=== PATIENT | male | born 1950 | race Caucasian/White ===

== ENCOUNTER → 2020-07-05 09:23 | Outpatient (REF) | payer OTHER, SELFPAY ==
--- NOTE | 2020-07-05 09:30 | CA_ITS ---
Transthoracic Echocardiogram Patient (Last, First, Middle): Michael Farrell E Gender: Male Date of : 1950 Age: 69 Procedure Date: 07/05/2020 Procedure Type: Transthoracic Echocardiogram Location: OP Height: 165.1 cm Weight: 70.31 kg BSA: 1.78 m2 Heart Rate: bpm BP: 180 / 72 mmHg Director Of Sustainability Programs: DSJoselin Referring MD: Greg Tejeda MD Symptoms: Z95.2 H/O MECHANICAL AV REPLACEMENT Study Quality: Technically Difficult ECG Rhythm: Sinus Conclusions: - The left ventricular systolic function is normal. The visually estimated ejection fraction is between 55-60%. - A mechanical prosthetic aortic valve is present. The prosthetic aortic valve appears to be functioning normally. Findings Left Ventricle Normal left ventricular cavity size. The left ventricular systolic function is normal. The visually estimated ejection fraction is between 55-60%. There is no evidence of regional wall motion abnormalities. E/E prime ratio is between 8 and 15 consistent with indeterminate filling pressures. Evidence suggests grade I (mild) diastolic dysfunction. There is mild septal asymmetric hypertrophy. Right Ventricle Normal right ventricular cavity size and systolic function. Atria The left atrium is normal in size. The right atrium is normal in size. Aortic Valve A mechanical prosthetic aortic valve is present. The prosthetic aortic valve appears to be functioning normally. The peak aortic velocity is 2.26 m/s with a calculated peak gradient of 20 mmHg. The mean gradient is 10 mmHg. The aortic valve area is 1.53 cm2. Mild para-valvular regurgitation. Acceleration time 74ms, within normal limits. Mitral Valve The mitral valve appears normal. There is trace mitral valve regurgitation. There is no mitral valve stenosis. Pulmonic Valve The pulmonic valve was not well visualized. There is mild pulmonic valve regurgitation. Tricuspid Valve Normal tricuspid valve structure. There is trace tricuspid valve regurgitation. The pulmonary artery systolic pressure is normal. Great Vessels The aortic annulus, sinuses of valsalva, and asc aorta are normal in size. Venous The inferior vena cava is normal in size and collapses greater than 50% with inspiration. Pericardium/Pleural There is no evidence of pericardial effusion. Prior Study Comparison No significant change compared to prior study dated: 05/20/2019. Measurements 2D Linear Measurements IVSd: 1.53 0.6-0.9/0.6-1.0 cm LVIDd: 5.03 3.9-5.3/4.2-5.9 cm LVIDd Index: 2.83 2.4-3.2/2.2-3.1 cm/m2 LVIDs: 4.02 2.0-3.6 cm LVPWd: 1.05 0.7-1.1 cm LA Diam: 3.40 2.7-3.8/3.0-4.0 cm LAIDs Index: 1.91 1.5-2.3 cm/m2 LV Mass: 325.99 67-162/88-224 g LV Mass Index: 183.14 43-95/49-115 g/m2 LVOT Diam: 2.30 3.0+(-)1.3 cm 2D Systolic Function EF 4C: 75.50 >55% EF 2C: 41.60 >55% EF BiP: 61.80 >55% Mitral Valve MV Pk E: 0.57 MV PK A: 0.63 MV Decel Time: 187.00 E/A: 0.90 E'Lateral: 6.29 E'Medial: 4.93 E/E' Med: 11.50 E/E' Lat: 9.00 PHT: 55.00 MVA PHT: 4.00 Decel [place]: 3.04 Aortic Valve AoV Pk Magdy: 2.26 AoV Mn Magdy: 1.48 AoV VTI: 0.44 AoV Pk Grad: 20.00 Aov Mn Grad: 10.00 FLORESITA Cont.VTI: 1.53 AI Pk Magdy: 6.01 AI Harvey: 4.27 LVOT LVOT Pk Magdy: 0.70 LVOT Mn Magdy: 0.50 LVOT VTI: 0.16 LVOT Pk Grad: 2.00 LVOT Mn Grad: 1.00 LVOT Diam: 2.30 LVOT Area: 4.15 Diastolic Function MV Pk E: 0.57 MV Pk A: 0.63 E/A: 0.90 E'Medial: 4.93 E/E' Med: 11.50 E' Laterial: 6.29 E/E' Lat: 9.00 Tricuspid Valve TR Pk Magdy: 2.01 TR Pk Grad: 16.00 RA Press: 3.00 RVSP: 19.00 Great Vessels Aorta Ao Asc: 3.40 2.1-3.4 cm Updated in Other Vendor System with Status of Final Fer Stone MD electronically signed on 07/05/2020 12:29:03 PM with status of Final
== END ==
LOC: HO.CARD 09:23
PROVIDERS: PCP Family Medicine; Visit Provider Internal Medicine Cardiovascular Disease
DX: Z95.2 Presence of prosthetic heart valve (principal)
CPT/HCPCS: 93306

== ENCOUNTER → 2020-07-12 14:50 | Outpatient (BNVA) | payer OTHER, SELFPAY | PROVIDERS: PCP Family Medicine; Visit Provider Internal Medicine Cardiovascular Disease | DX: Z76.89 Persons encountering health services in other specified circumstances (principal) ==

== ENCOUNTER → 2020-09-28 08:31 | Outpatient (REF) | payer OTHER, SELFPAY ==
--- NOTE | 2020-09-28 08:34 | CA_ITS ---
Transthoracic Echocardiogram Patient (Last, First, Middle): Michael Farrell E Gender: Male Date of : 1950 Age: 69 Procedure Date: 09/28/2020 Procedure Type: Transthoracic Echocardiogram Location: OP Height: 165.1 cm Weight: 68.04 kg BSA: 1.75 m2 Heart Rate: bpm BP: 122 / 80 mmHg Chief Petroleum Engineer: Referring MD: Greg Tejeda MD Symptoms: Z95.2 - Presence of prosthetic heart valve Study Quality: Fair ECG Rhythm: Sinus Conclusions: - The left ventricular systolic function is mildly decreased. The visually estimated ejection fraction is between 45-50%. - There is mildly decreased right ventricular systolic function. - The left atrium is moderately dilated. - A mechanical prosthetic aortic valve is present. The prosthetic aortic valve appears to be functioning normally. Mild para-valvular regurgitation. Findings Left Ventricle Normal left ventricular cavity size. There is moderately increased left ventricular wall thickness. The left ventricular systolic function is mildly decreased. The visually estimated ejection fraction is between 45-50%. E/E prime ratio is between 8 and 15 consistent with indeterminate filling pressures. Evidence suggests grade I (mild) diastolic dysfunction. Right Ventricle Normal right ventricular cavity size. There is mildly decreased right ventricular systolic function. Atria The left atrium is moderately dilated. The right atrium is normal in size. Aortic Valve A mechanical prosthetic aortic valve is present. The prosthetic aortic valve appears to be functioning normally. The peak aortic velocity is 2.38 m/s with a calculated peak gradient of 23 mmHg. The mean gradient is 11 mmHg. The aortic valve area is 1.96 cm2. Mild para-valvular regurgitation. Mitral Valve The mitral valve appears normal. There is mild mitral valve regurgitation. There is no mitral valve stenosis. Pulmonic Valve The pulmonic valve was not well visualized. There is mild pulmonic valve regurgitation. Tricuspid Valve Normal tricuspid valve structure. There is trace tricuspid valve regurgitation. The pulmonary artery systolic pressure is normal. Great Vessels The aortic annulus, sinuses of valsalva, and asc aorta are normal in size. Venous The inferior vena cava was not well visualized. Pericardium/Pleural There is no evidence of pericardial effusion. Prior Study Comparison Changes noted compared to prior study dated: 07/05/2020. LVEF appears lower but could also be from image quality. Measurements 2D Linear Measurements IVSd: 1.52 0.6-0.9/0.6-1.0 cm LVIDd: 4.58 3.9-5.3/4.2-5.9 cm LVIDd Index: 2.62 2.4-3.2/2.2-3.1 cm/m2 LVIDs: 3.36 2.0-3.6 cm LVPWd: 1.50 0.7-1.1 cm Ao Root: 3.40 2.1-3.5 cm LA Diam: 3.60 2.7-3.8/3.0-4.0 cm LAIDs Index: 2.06 1.5-2.3 cm/m2 LV Mass: 356.62 67-162/88-224 g LV Mass Index: 203.78 43-95/49-115 g/m2 LVOT Diam: 2.00 3.0+(-)1.3 cm 2D Systolic Function EF 4C: 43.00 >55% EF 2C: 35.50 >55% EF BiP: 39.10 >55% Mitral Valve MV Pk E: 0.52 MV PK A: 0.83 MV Decel Time: 274.00 E/A: 0.60 E'Lateral: 6.38 E'Medial: 4.54 E/E' Med: 11.50 E/E' Lat: 8.20 PHT: 80.00 MVA PHT: 2.75 Decel [place]: 1.91 Aortic Valve AoV Pk Magdy: 2.38 AoV Mn Magdy: 1.53 AoV VTI: 0.46 AoV Pk Grad: 23.00 Aov Mn Grad: 11.00 FLORESITA Cont.VTI: 1.96 LVOT LVOT Pk Magdy: 1.30 LVOT Mn Magdy: 0.81 LVOT VTI: 0.29 LVOT Pk Grad: 7.00 LVOT Mn Grad: 3.00 LVOT Diam: 2.00 LVOT Area: 3.14 Diastolic Function MV Pk E: 0.52 MV Pk A: 0.83 E/A: 0.60 E'Medial: 4.54 E/E' Med: 11.50 E' Laterial: 6.38 E/E' Lat: 8.20 Tricuspid Valve RA Press: 3.00 RVSP: 10.00 Great Vessels Aorta Ao Root-2D: 3.40 2.0-3.7 cm Pulmonary Valve PV Pk Magdy: 1.03 Peak PV Grad: 4.00 Updated in Other Vendor System with Status of Final Fer Stone MD electronically signed on 09/28/2020 3:46:38 PM with status of Final
== END ==
LOC: HO.CARD 08:31
PROVIDERS: PCP Family Medicine; Visit Provider Internal Medicine Cardiovascular Disease
DX: Z95.2 Presence of prosthetic heart valve (principal)
CPT/HCPCS: 93306

== ENCOUNTER 2020-10-13 16:50 | Emergency (ER) | payer OTHER, SELFPAY ==
--- NOTE | 2020-10-13 | ECG_ITS ---
Test Reason : WEAK Blood Pressure : / mmHG Vent. Rate : 063 BPM Atrial Rate : 063 BPM P-R Int : 208 ms QRS Dur : 132 ms QT Int : 450 ms P-R-T Axes : 029 -35 009 degrees QTc Int : 460 ms Sinus rhythm with frequent Premature ventricular complexes Left axis deviation Left ventricular hypertrophy with QRS widening Abnormal ECG When compared with ECG of 20-MAY-2019 15:16, ST no longer depressed in Inferior leads Referred By: Harriet Sharma Electronically Signed By:KYLE STONE MD
[2020-10-13 17:13] VITALS: BP 186/78; BP 188/79; PULSE 61; PULSE 64; RESP 12; TEMP 36.7; O2SAT 95; O2SAT 97; BMI 25.7
--- NOTE | 2020-10-13 17:21 | PC.NURSE ---
pt states that [place] [facility] [place]
--- NOTE | 2020-10-13 17:30 | ED.EPISTAXIS ---
History of Present Illness General Chief Complaint: Epistaxis Stated Complaint: EPISTAXIS,HYPERTENSION,ARRYTHMIA Source: patient Mode of arrival: ambulatory Limitations: no limitations History of Present Illness HPI Narrative: 69-year-old male on Coumadin for valve replacement approximately 10 years ago presents for epistaxis to the left naris. Started bleeding while he was at work several hours ago, bleeding did stop for short period of time. Patient presented to the emergency department after bleeding restarted. He does not describe any injury, nose picking, denies chest pain or pressure, palpitations, shortness of breath, weakness, lightheadedness, nausea, vomiting, abdominal pain, abdominal distention, or edema. Location: Yes left naris Onset/current episode: Yes hour(s) Duration: Yes intermittent Pertinent past history: Yes hypertension Context: Yes warfarin use Treatment prior to arrival: Yes nose pinching, Yes head leaning forward and Yes stuff nose with tissue Related Data Home Medications Medication Instructions Recorded Confirmed atorvastatin 10 mg tablet 10 mg PO DAILY 07/12/20 07/12/20 lamotrigine 25 mg tablet mg PO 07/12/20 07/12/20 memantine 5 mg tablet 5 mg PO BEDTIME 07/12/20 07/12/20 metoprolol tartrate 25 mg tablet 25 mg PO BID 07/12/20 07/12/20 omeprazole 20 mg capsule,delayed 20 mg PO BID 07/12/20 07/12/20 release trazodone 50 mg tablet 50 mg PO BEDTIME 07/12/20 07/12/20 warfarin 5 mg tablet 2.5 mg PO BEDTIME tab 07/12/20 07/12/20 Allergies Allergy/AdvReac Type Severity Reaction Status Date / Time No Known Allergies Allergy Unverified 04/15/20 16:31 Review of Systems Review of Systems: Constitutional: No Fever, No Chills ENT/Mouth: No Ear Pain, No Nasal Congestion, positive nose bleed Eyes: No Eye Pain, No Swelling, No Redness Cardiovascular: No Chest Pain, No SOB Respiratory: No Cough, No Sputum Gastrointestinal: No Nausea, No Vomiting, No Diarrhea Genitourinary: No Dysuria, No Hematuria Musculoskeletal: No joint pain, No Myalgias Skin: No Skin Lesions, No rash Neuro: No Weakness, No Numbness, No headache Psych: No Anxiety/Panic, No Depression Heme/Lymph:positive Bleeding,No Lymphadenopathy Endocrine: No Polyuria, No Polydipsia Yes all other systems are reviewed and are negative [facility] Past Medical History Attestation statement: The following information was validated with the patient. Source: old records reviewed Surgical History Heart valve replaced Social History Social History Alcohol intake: never Smoking Status: Former smoker Use of substances other than those prescribed or required for medical reasons: No Advance Directives: No Advance Directives Information Provided: No Physical Exam Vital Signs: Vital Signs: Last Vital Signs Temp 98.1 F 10/13/20 17:13 Pulse 62 10/13/20 17:49 Resp 12 10/13/20 17:49 BP 158/84 H 10/13/20 17:49 Pulse Ox 97 10/13/20 17:49 Body Mass Index 25.7 Appearance: Alert. Oriented X3. No acute distress. Eyes: Pupils equal, round and reactive to light. ENT: Pharynx normal. Right nare anterior bleed. Neck: Normal inspection. Neck supple. CVS: Normal heart rate and rhythm. Pulses normal. Respiratory: No respiratory distress. Breath sounds normal. Abdomen: Soft and nontender. Skin: Skin warm and dry. Normal skin color. Normal skin turgor. Extremities: No lower extremity edema. Neuro: No motor deficit. No sensory deficit. Course Course Course Narrative: 69-year-old male on Coumadin status post valve replacement 10 years ago. Presents with epistaxis to the left naris. Plan is for Afrin, TXA and packing. H&H 13.6/39.1 which is consistent with his prior values dating back to 2019. Platelets 157 which is consistent with prior values dating back to 2019. INR 3.4 which is significantly higher than his last value at 2.4 1 week ago. 6:55 p.m. Bleeding appears to have stopped. Will continue to monitor. 7:57 p.m. no further bleeding noted. Patient will be discharged home. Coumadin [facility]. Patient verbalized understanding of and agrees with plan of care discharge home. MDM - Epistaxis Differential Diagnosis Differential diagnosis: Likely anterior epistaxis Medical Records Attestation: I reviewed the patient's medical records. Lab Data Attestation: I reviewed the patient's lab results. Result diagrams: 10/13/20 17:42 10/13/20 17:42 Labs: Lab Results 10/13/20 10/13/20 10/13/20 Range/Units 17:42 17:42 17:42 WBC 5.6 (4.8-10.8) X10*3/uL RBC 4.12 L (4.60-5.80) X10*6/uL Hgb 13.6 L (14.0-18.0) g/dl Hct 39.1 L (42-52) % MCV 94.9 (80-98) fL MCH 33.0 (27.0-33.0) pg MCHC 34.8 (31.0-36.0) g/dl RDW 12.2 (11.0-16.0) % Plt Count 157 L (160-400) X10*3/uL MPV 11.3 (9.4-12.4) fL Immature Gran % (Auto) 0.4 (0.0-0.4) % Neut % (Auto) 68.6 (45-73) % Lymph % (Auto) 18.9 L (20-40) % [place] % (Auto) 9.3 (2-11) % Eos % (Auto) 2.1 (0-4) % Baso % (Auto) 0.7 (0-2) % Lymph # (Auto) 1.1 L (1.2-4.9) X10*3/uL [place] # (Auto) 0.5 (0.1-1.2) X10*3/uL Eos # (Auto) 0.1 (0.0-0.4) X10*3/uL Baso # (Auto) 0.0 (0.0-0.2) X10*3/uL Abs Immat Gran (auto) 0.02 (0.00-0.03) X10*3/uL Absolute Neuts (auto) 3.8 (2.0-8.3) X10*3/uL Absolute Nucleated RBC 0.000 (0.0-0.012) X10*3/uL Nucleated RBC % (auto) 0.0 (0.0-0.2) /100WBC PT 41.3 H (10.8-13.0) SEC INR 3.4 H (0.9-1.1) APTT 59.9 H (24.1-38.0) SEC Sodium 137 (135-145) mmol/L Potassium 4.5 (3.3-5.1) mmol/L Chloride 104 (96-108) mmol/L Carbon Dioxide 27 (22-29) mmol/L Anion Gap 11 L (12-20) BUN 15 (9-16) mg/dL Creatinine 1.22 (0.5-1.4) mg/dL Estim Creat Clear Calc 48.5 Estimated GFR 59 Random Glucose 89 (60-115) mg/dL Calcium 8.8 (8.4-10.2) mg/dL Troponin I High Sens (<3.5-35.0) ng/L 10/13/20 10/13/20 Range/Units 17:42 20:09 WBC (4.8-10.8) X10*3/uL RBC (4.60-5.80) X10*6/uL Hgb (14.0-18.0) g/dl Hct (42-52) % MCV (80-98) fL MCH (27.0-33.0) pg MCHC (31.0-36.0) g/dl RDW (11.0-16.0) % Plt Count (160-400) X10*3/uL MPV (9.4-12.4) fL Immature Gran % (Auto) (0.0-0.4) % Neut % (Auto) (45-73) % Lymph % (Auto) (20-40) % [place] % (Auto) (2-11) % Eos % (Auto) (0-4) % Baso % (Auto) (0-2) % Lymph # (Auto) (1.2-4.9) X10*3/uL [place] # (Auto) (0.1-1.2) X10*3/uL Eos # (Auto) (0.0-0.4) X10*3/uL Baso # (Auto) (0.0-0.2) X10*3/uL Abs Immat Gran (auto) (0.00-0.03) X10*3/uL Absolute Neuts (auto) (2.0-8.3) X10*3/uL Absolute Nucleated RBC (0.0-0.012) X10*3/uL Nucleated RBC % (auto) (0.0-0.2) /100WBC PT (10.8-13.0) SEC INR (0.9-1.1) APTT (24.1-38.0) SEC Sodium (135-145) mmol/L Potassium (3.3-5.1) mmol/L Chloride (96-108) mmol/L Carbon Dioxide (22-29) mmol/L Anion Gap (12-20) BUN (9-16) mg/dL Creatinine (0.5-1.4) mg/dL Estim Creat Clear Calc Estimated GFR Random Glucose (60-115) mg/dL Calcium (8.4-10.2) mg/dL Troponin I High Sens 11.9 17.5 (<3.5-35.0) ng/L ECG Data Attestation: I personally reviewed and interpreted this ECG as follows: ECG interpretation date: 10/13/20 ECG interpretation time: 17:38 Prior ECG tracings: available for review Interpretation: Vent. rate 63 BPM AL interval 208 ms QRS duration 132 ms QT/QTc 450/460 ms P-R-T axes 29 -35 9 Sinus rhythm with frequent Premature ventricular complexes Left axis deviation Left ventricular hypertrophy with QRS widening Abnormal ECG When compared with ECG of 20-MAY-2019 15:16, ST no longer depressed in Inferior leads Discharge Plan Discharge Clinical Impression: Acute anterior epistaxis, Elevated INR Patient Disposition: Home, Self-Care Instructions: Nosebleed (ED), Elevated INR (ED) Additional Instructions: You were evaluated for nose bleed. We used Afrin and tranexamic acid to help reduce the bleeding. Please not pick or blow your nose for the next 24 hours. If bleeding persists please return to emergency department. Thank you for choosing this emergency department for evaluation. Please follow-up with primary care physician as needed. Return to the emergency department for any new, concerning, or worsening symptoms. Prescriptions: No Action metoprolol tartrate 25 mg tablet 25 mg PO BID RF: 0 warfarin 5 mg tablet 2.5 mg PO BEDTIME RF: 0 omeprazole 20 mg capsule,delayed release(DR/EC) 20 mg PO BID RF: 0 lamotrigine 25 mg tablet PO RF: 0 trazodone 50 mg tablet 50 mg PO BEDTIME RF: 0 atorvastatin 10 mg tablet 10 mg PO DAILY RF: 0 memantine 5 mg tablet 5 mg PO BEDTIME RF: 0 Interventions: ED Discharge Assessment Last Done: 10/13/20 20:14 Discharge Date/Time: 10/13/20 20:15
[2020-10-13 17:48] LABS: MANUAL DIFF FLAG NO
[2020-10-13 17:49] VITALS: BP 158/84; PULSE 62; RESP 12; O2SAT 97
[2020-10-13] MEDS: Tranexamic Acid 1,000 MG/10 ML VIAL 500 MG INTRANASAL (17:57)
[2020-10-13] MEDS: Oxymetazoline HCl 0.05 % Nasal 15 ML SPRAY 2 SPRAY NOSTRIL-B (18:13)
[2020-10-13 18:17] LABS: Basophils Percent Auto 0.7 % (0-2); Eosinophils Absolute Auto 0.1 X10*3/uL (0.0-0.4); Eosinophils Percent Auto 2.1 % (0-4); Hematocrit 39.1 % (42-52); Hemoglobin 13.6 g/dl (14.0-18.0); Imm Gran Abs Auto 0.02 X10*3/uL (0.00-0.03); Imm Gran Pct Auto 0.4 % (0.0-0.4); Lymphocytes Absolute Auto 1.1 X10*3/uL (1.2-4.9); Lymphocytes Percent Auto 18.9 % (20-40); Mean Corpuscular HGB Conc 34.8 g/dl (31.0-36.0); Mean Corpuscular Volume 94.9 fL (80-98); Mean Platelet Volume 11.3 fL (9.4-12.4); Monocytes Absolute Auto 0.5 X10*3/uL (0.1-1.2); Monocytes Percent Auto 9.3 % (2-11); Neutrophils Absolute Auto 3.8 X10*3/uL (2.0-8.3); Neutrophils Percent Auto 68.6 % (45-73); Platelet Count 157 X10*3/uL (160-400); Red Blood Count 4.12 X10*6/uL (4.60-5.80); Red Cell Distribution Width 12.2 % (11.0-16.0); White Blood Count 5.6 X10*3/uL (4.8-10.8)
[2020-10-13 18:21] LABS: INTERNATIONAL NORM RATIO 3.4 (0.9-1.1); Prothrombin Time 41.3 SEC (10.8-13.0)
[2020-10-13 18:24] LABS: Anion Gap 11 (12-20); Blood Urea Nitrogen 15 mg/dL (9-16); Calcium 8.8 mg/dL (8.4-10.2); Carbon Dioxide 27 mmol/L (22-29); Chloride 104 mmol/L (96-108); Creatinine Clr Calc Pharmacy 48.5; Estimated Glomerular Filt Rate 59; Glucose Random 89 mg/dL (60-115); Partial Thromboplastin Time 59.9 SEC (24.1-38.0); Potassium 4.5 mmol/L (3.3-5.1); Sodium 137 mmol/L (135-145)
[2020-10-13 19:00] LABS: Troponin-I High Sensitivity 11.9 ng/L (<3.5-35.0)
--- NOTE | 2020-10-13 19:59 | PC.NURSE ---
PT AWAKE IN STRETCHER AWAITING FOR FURTHER ORDERS. NOSE BLEED IS SUBSIDING AT THIS TIME. PT DENIES ANY COMPLAINTS. PT UP AND AMBULATING AT THIS TIME.
--- NOTE | 2020-10-13 20:10 | PC.NURSE ---
Pt to u/s in stretcher.
[2020-10-13 21:11] LABS: Troponin-I High Sensitivity 17.5 ng/L (<3.5-35.0)
== END 2020-10-13 20:15 | disposition home or self-care (01) ==
PROVIDERS: Nurse Practitioner Family; Emergency Provider Emergency Medicine; PCP Family Medicine
DX: R04.0 Epistaxis (principal); R79.1 Abnormal coagulation profile; I10 Essential (primary) hypertension; Z95.2 Presence of prosthetic heart valve; Z79.01 Long term (current) use of anticoagulants
CPT/HCPCS: 30901; 36415; 80048; 84484; 85025; 85610; 85730; 93005; 99284

== ENCOUNTER → 2020-10-18 09:32 | Outpatient (BNVA) | payer OTHER, SELFPAY | PROVIDERS: PCP Family Medicine; Visit Provider Internal Medicine Cardiovascular Disease ==

== ENCOUNTER 2020-12-09 06:05 | Outpatient (REF) | payer OTHER, SELFPAY ==
[2020-12-09 12:21] LABS: Cholesterol 105 mg/dL; HDL Cholesterol 28 mg/dL; LDL Cholesterol Calculated 44 mg/dl; Triglycerides 165 mg/dL
== END 2020-12-09 06:06 | disposition home or self-care (01) ==
LOC: HO.HMGCLDS 06:05
PROVIDERS: PCP Family Medicine; Visit Provider Internal Medicine Cardiovascular Disease
DX: E78.5 Hyperlipidemia, unspecified (principal)
CPT/HCPCS: 36415; 80061

== ENCOUNTER → 2020-12-16 09:32 | Outpatient (BNVA) | payer OTHER, SELFPAY | PROVIDERS: PCP Family Medicine; Visit Provider Internal Medicine Cardiovascular Disease ==

== ENCOUNTER → 2021-02-01 09:29 | Outpatient (REF) | payer OTHER, SELFPAY ==
--- NOTE | 2021-02-01 09:36 | CA_ITS ---
Transthoracic Echocardiogram Patient (Last, First, Middle): Michael Farrell E Gender: Male Date of : 1950 Age: 70 Procedure Date: 02/01/2021 Procedure Type: Transthoracic Echocardiogram Location: OP Height: 165.1 cm Weight: 63.5 kg BSA: 1.70 m2 Heart Rate: bpm BP: 150 / 70 mmHg Storage Battery Inspector: DSG Referring MD: Greg Tejeda MD Symptoms: I42.9 - Cardiomyopathy, unspecified Study Quality: Fair ECG Rhythm: Sinus Conclusions: - The left ventricular systolic function is mildly decreased. The calculated ejection fraction is 44% by biplane method. Findings Left Ventricle Normal left ventricular cavity size. There is moderately increased left ventricular wall thickness. The left ventricular systolic function is mildly decreased. The calculated ejection fraction is 44% by biplane method. Regional wall motion abnormalities can not be excluded due to suboptimal endocardial definition. There is mild global hypokinesis. Right Ventricle Normal right ventricular cavity size. There is low normal right ventricular systolic function. Prior Study Comparison No significant change compared to prior study dated: 09/28/2020. Measurements 2D Linear Measurements LVIDd: 4.66 3.9-5.3/4.2-5.9 cm LVIDd Index: 2.74 2.4-3.2/2.2-3.1 cm/m2 LVIDs: 3.48 2.0-3.6 cm 2D Systolic Function EF 4C: 44.20 >55% EF 2C: 42.40 >55% EF BiP: 43.90 >55% Mitral Valve MV Pk E: 0.47 MV PK A: 0.62 MV Decel Time: 242.00 E/A: 0.80 E'Lateral: 7.62 E'Medial: 5.22 E/E' Med: 9.00 E/E' Lat: 6.20 PHT: 71.00 MVA PHT: 3.10 Decel [place]: 1.95 Diastolic Function MV Pk E: 0.47 MV Pk A: 0.62 E/A: 0.80 E'Medial: 5.22 E/E' Med: 9.00 E' Laterial: 7.62 E/E' Lat: 6.20 Updated in Other Vendor System with Status of Final Fer Stone MD electronically signed on 02/01/2021 12:06:29 PM with status of Final
== END ==
LOC: HO.CARD 09:29
PROVIDERS: PCP Family Medicine; Visit Provider Internal Medicine Cardiovascular Disease
DX: I42.9 Cardiomyopathy, unspecified (principal)
CPT/HCPCS: 93308

== ENCOUNTER → 2021-03-31 10:21 | Outpatient (BNVA) | payer OTHER, SELFPAY | PROVIDERS: PCP Family Medicine; Visit Provider Internal Medicine Cardiovascular Disease | DX: I42.9 Cardiomyopathy, unspecified (principal); I10 Essential (primary) hypertension; Z95.2 Presence of prosthetic heart valve | CPT/HCPCS: 93005 ==

== ENCOUNTER 2021-04-27 10:26 | Outpatient (REF) | payer OTHER, SELFPAY ==
--- NOTE | ~2021-04-27 | XR_ITS ---
EXAMINATION: XR FOOT, LEFT CLINICAL INFORMATION: Left heel pain COMPARISON: None TECHNIQUE: AP, lateral, and oblique views of the left foot. FINDINGS: There is a small calcaneal heel enthesophyte. No visible fracture or dislocation seen. Ankle mortise and subtalar joints are normal. XR/XR foot LT min 3V IMPRESSION: Small calcaneal heel enthesophyte.
== END 2021-04-27 10:27 | disposition home or self-care (01) ==
LOC: HO.XRAY 10:26
PROVIDERS: Absent Provider Podiatrist; PCP Family Medicine; Visit Provider Family Medicine
DX: M79.672 Pain in left foot (principal)
CPT/HCPCS: 73630

== ENCOUNTER → 2021-09-14 13:19 | Outpatient (BNVA) | payer OTHER, SELFPAY | PROVIDERS: PCP Family Medicine; Visit Provider Nurse Practitioner Family ==

== ENCOUNTER 2021-10-04 06:55 | Outpatient (REF) | payer OTHER, SELFPAY ==
[2021-10-04 11:27] LABS: MANUAL DIFF FLAG NO
[2021-10-04 11:39] LABS: Basophils Absolute Auto 0.1 X10*3/uL (0.0-0.2); Basophils Percent Auto 0.9 % (0-2); Eosinophils Absolute Auto 0.3 X10*3/uL (0.0-0.4); Eosinophils Percent Auto 4.8 % (0-4); Hematocrit 40.7 % (42.0-52.0); Hemoglobin 13.6 g/dl (14.0-18.0); Imm Gran Abs Auto 0.02 X10*3/uL (0.00-0.03); Imm Gran Pct Auto 0.4 % (0.0-0.4); Lymphocytes Absolute Auto 1.2 X10*3/uL (1.2-4.9); Lymphocytes Percent Auto 20.6 % (20-40); Mean Corpuscular HGB Conc 33.4 g/dl (31.0-36.0); Mean Corpuscular Hemoglobin 31.9 pg (27.0-33.0); Mean Corpuscular Volume 95.5 fL (80.0-98.0); Mean Platelet Volume 11.3 fL (9.4-12.4); Monocytes Absolute Auto 0.7 X10*3/uL (0.1-1.2); Monocytes Percent Auto 12.7 % (2-11); Neutrophils Absolute Auto 3.4 x10*3/uL (2.0-8.3); Neutrophils Percent Auto 60.6 % (45-73); Platelet Count 147 X10*3/uL (160-400); Red Blood Count 4.26 X10*6/uL (4.60-5.80); Red Cell Distribution Width 12.7 % (11.0-16.0); White Blood Count 5.6 X10*3/uL (4.8-10.8)
[2021-10-04 11:55] LABS: Alanine Aminotransferase 30 U/L (0-40); Anion Gap 9 (12-20); Blood Urea Nitrogen 16 mg/dL (9-16); Carbon Dioxide 29 mmol/L (22-29); Chloride 109 mmol/L (96-108); Estimated Glomerular Filt Rate 58; Potassium 4.2 mmol/L (3.3-5.1); Sodium 143 mmol/L (135-145)
== END 2021-10-04 06:56 | disposition home or self-care (01) ==
LOC: HO.HMGCLDS 06:55
PROVIDERS: Visit Provider Family Medicine
DX: I10 Essential (primary) hypertension (principal); E78.00 Pure hypercholesterolemia, unspecified; Z79.899 Other long term (current) drug therapy; Z79.01 Long term (current) use of anticoagulants
CPT/HCPCS: 36415; 80051; 82550; 82565; 84460; 84520; 85025

== ENCOUNTER → 2021-11-10 07:29 | Outpatient (REF) | payer OTHER, SELFPAY ==
--- NOTE | 2021-11-10 07:32 | CA_ITS ---
Transthoracic Echocardiogram Patient (Last, First, Middle): Michael Farrell E Gender: Male Date of : 1950 Age: 70 Procedure Date: 11/10/2021 Procedure Type: Transthoracic Echocardiogram Location: OP Height: 162.56 cm Weight: 70.31 kg BSA: 1.76 m2 Heart Rate: bpm BP: 160 / 85 mmHg Campus Director: MYLES Referring MD: Luz Payton HELP DESK ENGINEER-Earnestine Law Enforcement Officer: Martin Shaw MD Symptoms: I42.9 - Cardiomyopathy, unspecified Study Quality: Fair ECG Rhythm: Sinus Conclusions: - 1. Mildly reduced LV systolic function with LVEF of 45-50% with impaired relaxation filling pattern 2. Normally functioning mechanical aortic valve 3. Normal RV systolic pressure 4. No pericardial effusion Findings Left Ventricle Normal left ventricular cavity size. There is mildly increased left ventricular wall thickness. The left ventricular systolic function is mildly decreased. The visually estimated ejection fraction is between 45-50%. Spectral Doppler is indicative of an impaired relaxation filling pattern. E/E prime ratio is between 8 and 15 consistent with indeterminate filling pressures. Measure global longitudinal endocardial strain is - 14.1%, which is reduced. Right Ventricle Normal right ventricular cavity size and systolic function. Atria The left atrium is moderately dilated. There is no evidence of interatrial shunt. The right atrium is likely dilated. Aortic Valve A mechanical prosthetic aortic valve is present. The prosthetic aortic valve appears to be functioning normally. The mean gradient is 11 mmHg. There is mild aortic valve regurgitation. the valve is well seated without abnormal rocking motion. Mitral Valve There is mild anterior and posterior mitral leaflet thickening. There is trace mitral valve regurgitation. There is no mitral valve stenosis. Pulmonic Valve The pulmonic valve was not well visualized. Tricuspid Valve Likely normal tricuspid valve structure and function. There is trace tricuspid valve regurgitation. The right ventricular systolic pressure is normal. The right ventricular systolic pressure is 20 mmHg. Normal right atrial pressure. There is no evidence of pulmonary hypertension. Great Vessels All visible segments of the aorta are normal in size. The pulmonary artery was not well visualized. Venous The inferior vena cava is normal in size and collapses greater than 50% with inspiration. Pericardium/Pleural There is no evidence of pericardial effusion. Measurements 2D Linear Measurements IVSd: 1.39 0.6-0.9/0.6-1.0 cm LVIDd: 5.14 3.9-5.3/4.2-5.9 cm LVIDd Index: 2.92 2.4-3.2/2.2-3.1 cm/m2 LVIDs: 4.08 2.0-3.6 cm LVPWd: 1.17 0.7-1.1 cm LA Diam: 3.50 2.7-3.8/3.0-4.0 cm LAIDs Index: 1.99 1.5-2.3 cm/m2 LV Mass: 333.57 67-162/88-224 g LV Mass Index: 189.53 43-95/49-115 g/m2 LVOT Diam: 2.00 3.0+(-)1.3 cm 2D Systolic Function EF 4C: 48.30 >55% EF 2C: 53.90 >55% EF BiP: 50.60 >55% Mitral Valve MV Pk E: 0.53 MV PK A: 0.69 MV Decel Time: 261.00 E/A: 0.80 E'Lateral: 7.72 E'Medial: 4.68 E/E' Med: 11.20 E/E' Lat: 6.80 PHT: 76.00 MVA PHT: 2.89 Decel [place]: 2.02 Aortic Valve AoV Pk Magdy: 2.44 AoV Mn Magdy: 1.57 AoV VTI: 0.51 AoV Pk Grad: 24.00 Aov Mn Grad: 11.00 FLORESITA Cont.VTI: 1.93 LVOT LVOT Pk Magdy: 1.41 LVOT Mn Magdy: 0.97 LVOT VTI: 0.32 LVOT Pk Grad: 8.00 LVOT Mn Grad: 4.00 LVOT Diam: 2.00 LVOT Area: 3.14 Diastolic Function MV Pk E: 0.53 MV Pk A: 0.69 E/A: 0.80 E'Medial: 4.68 E/E' Med: 11.20 E' Laterial: 7.72 E/E' Lat: 6.80 Right Ventricle TAPSE (mm): 14.30 TVS' Magdy: 6.53 Tricuspid Valve TR Pk Magdy: 2.07 TR Pk Grad: 17.00 RA Press: 3.00 RVSP: 20.00 Great Vessels Aorta Sinus of Valsalva: 4.11 2.0-3.[address] [place]: 3.11 1.7-3.4 cm Ao Asc: 3.50 2.1-3.4 cm Ao Arch: 3.20 Updated in Other Vendor System with Status of Final Martin Shaw MD electronically signed on 11/10/2021 1:50:16 PM with status of Final
== END ==
LOC: HO.CARD 07:29
PROVIDERS: Visit Provider Nurse Practitioner Family
DX: I42.9 Cardiomyopathy, unspecified (principal)
CPT/HCPCS: 93306

== ENCOUNTER 2021-11-22 13:07 | Outpatient (REF) | payer OTHER, SELFPAY ==
--- NOTE | ~2021-11-22 | XR_ITS ---
EXAMINATION: XR KNEE, LEFT CLINICAL INFORMATION: Left knee pain COMPARISON: None TECHNIQUE: Four views of the left knee. FINDINGS: Bones and soft tissues are normal. No fracture or joint effusion. Alignment is anatomic. Joint spaces are well maintained. No abnormal soft tissue calcification. XR/XR knee LT 4V IMPRESSION: Unremarkable left knee exam.
== END 2021-11-22 13:08 | disposition home or self-care (01) ==
LOC: HO.XRAY 13:07
PROVIDERS: PCP Family Medicine; Visit Provider Family Medicine
DX: M25.562 Pain in left knee (principal)
CPT/HCPCS: 73564

== ENCOUNTER 2021-12-05 08:17 | Outpatient (REF) | payer OTHER, SELFPAY ==
--- NOTE | ~2021-12-05 | XR_ITS ---
EXAMINATION: XR KNEE, AP STANDING, BILATERAL XR KNEE, LEFT CLINICAL INFORMATION: Right knee pain. COMPARISON: None TECHNIQUE: Bilateral AP knee standing one view. Left knee 2 views. FINDINGS: AP BILATERAL KNEE: There is minimal loss of medial compartment joint space both knees. No bony erosive changes. The lateral compartment joint space is normal. No fracture, lytic or sclerotic process seen. The soft tissues are normal. LEFT KNEE: There is no visible acute fracture, dislocation or subluxation. The patellofemoral joint space is maintained normal. XR/XR knee standing BI IMPRESSION: Mild degenerative changes medial compartment both knees. No visible acute fracture, dislocation bony erosive changes left knee. No evidence of joint effusion either.
--- NOTE | ~2021-12-05 | XR_ITS ---
EXAMINATION: XR KNEE, AP STANDING, BILATERAL XR KNEE, LEFT CLINICAL INFORMATION: Right knee pain. COMPARISON: None TECHNIQUE: Bilateral AP knee standing one view. Left knee 2 views. FINDINGS: AP BILATERAL KNEE: There is minimal loss of medial compartment joint space both knees. No bony erosive changes. The lateral compartment joint space is normal. No fracture, lytic or sclerotic process seen. The soft tissues are normal. LEFT KNEE: There is no visible acute fracture, dislocation or subluxation. The patellofemoral joint space is maintained normal. XR/XR knee LT 2V IMPRESSION: Mild degenerative changes medial compartment both knees. No visible acute fracture, dislocation bony erosive changes left knee. No evidence of joint effusion either.
== END 2021-12-05 08:18 | disposition home or self-care (01) ==
LOC: HO.HOSX 08:17
PROVIDERS: Visit Provider Physician Assistant
DX: M17.12 Unilateral primary osteoarthritis, left knee (principal); M25.561 Pain in right knee
CPT/HCPCS: 73560; 73565

== ENCOUNTER 2021-12-16 09:23 | Outpatient (REF) | payer OTHER, SELFPAY ==
[2021-12-16 09:58] LABS: COVID-19 Test Positive (Negative)
== END 2021-12-16 09:24 | disposition home or self-care (01) ==
LOC: HO.LAB 09:23
PROVIDERS: Visit Provider Internal Medicine
DX: Z20.822 Contact with and (suspected) exposure to COVID-19 (principal)
CPT/HCPCS: 87635; C9803

== ENCOUNTER → 2022-03-30 13:47 | Outpatient (BNVA) | payer OTHER, SELFPAY | PROVIDERS: PCP Family Medicine; Referring Provider Family Medicine; Visit Provider Nurse Practitioner Family | DX: I42.9 Cardiomyopathy, unspecified (principal); E78.5 Hyperlipidemia, unspecified; I10 Essential (primary) hypertension; I44.0 Atrioventricular block, first degree; I51.7 Cardiomegaly; Z95.2 Presence of prosthetic heart valve | CPT/HCPCS: 93005 ==

== ENCOUNTER 2022-06-19 10:03 | Outpatient (REF) | payer OTHER, SELFPAY ==
[2022-06-19 11:30] LABS: MANUAL DIFF FLAG NO
[2022-06-19 11:54] LABS: Basophils Absolute Auto 0.1 X10*3/uL (0.0-0.2); Basophils Percent Auto 0.9 % (0-2); Eosinophils Absolute Auto 0.3 X10*3/uL (0.0-0.4); Hematocrit 45.1 % (42.0-52.0); Hemoglobin 15.3 g/dl (14.0-18.0); Imm Gran Abs Auto 0.03 X10*3/uL (0.00-0.03); Imm Gran Pct Auto 0.5 % (0.0-0.4); Lymphocytes Absolute Auto 1.2 X10*3/uL (1.2-4.9); Lymphocytes Percent Auto 20.8 % (20-40); Mean Corpuscular HGB Conc 33.9 g/dl (31.0-36.0); Mean Corpuscular Hemoglobin 32.3 pg (27.0-33.0); Mean Corpuscular Volume 95.3 fL (80.0-98.0); Monocytes Absolute Auto 0.6 X10*3/uL (0.1-1.2); Monocytes Percent Auto 9.8 % (2-11); Neutrophils Absolute Auto 3.7 x10*3/uL (2.0-8.3); Platelet Count 198 X10*3/uL (160-400); Red Blood Count 4.73 X10*6/uL (4.60-5.80); Red Cell Distribution Width 12.2 % (11.0-16.0); White Blood Count 5.8 X10*3/uL (4.8-10.8)
[2022-06-19 12:13] LABS: Alanine Aminotransferase 32 U/L (0-40); Anion Gap 13 (12-20); Aspartate Amino Transferase 23 U/L (5-37); Blood Urea Nitrogen 16 mg/dL (9-16); Carbon Dioxide 30 mmol/L (22-29); Chloride 104 mmol/L (96-108); Estimated Glomerular Filt Rate > 60; Potassium 4.8 mmol/L (3.3-5.1); Sodium 142 mmol/L (135-145)
[2022-06-19 12:35] LABS: Free T4 (Free Thyroxine) 0.86 ng/dL (0.71-1.85)
== END 2022-06-19 10:04 | disposition home or self-care (01) ==
LOC: HO.HMGCLDS 10:03
PROVIDERS: PCP Family Medicine; Visit Provider Family Medicine
DX: I10 Essential (primary) hypertension (principal); R53.83 Other fatigue; E78.00 Pure hypercholesterolemia, unspecified; Z79.899 Other long term (current) drug therapy
CPT/HCPCS: 36415; 80051; 82550; 82565; 84439; 84450; 84460; 84520; 85025

== ENCOUNTER 2023-01-17 10:50 | Outpatient (REF) | payer OTHER, SELFPAY ==
[2023-01-17 13:29] LABS: MANUAL DIFF FLAG NO
[2023-01-17 13:36] LABS: Basophils Percent Auto 0.8 % (0-2); Eosinophils Absolute Auto 0.2 X10*3/uL (0.0-0.4); Eosinophils Percent Auto 4.8 % (0-4); Hematocrit 41.6 % (42.0-52.0); Hemoglobin 14.4 g/dl (14.0-18.0); Imm Gran Abs Auto 0.02 X10*3/uL (0.00-0.03); Imm Gran Pct Auto 0.4 % (0.0-0.4); Lymphocytes Absolute Auto 1.1 X10*3/uL (1.2-4.9); Lymphocytes Percent Auto 22.7 % (20-40); Mean Corpuscular HGB Conc 34.6 g/dl (31.0-36.0); Mean Corpuscular Hemoglobin 33.3 pg (27.0-33.0); Mean Corpuscular Volume 96.1 fL (80.0-98.0); Mean Platelet Volume 10.9 fL (9.4-12.4); Monocytes Absolute Auto 0.5 X10*3/uL (0.1-1.2); Monocytes Percent Auto 10.6 % (2-11); Neutrophils Absolute Auto 2.9 x10*3/uL (2.0-8.3); Neutrophils Percent Auto 60.7 % (45-73); Platelet Count 165 X10*3/uL (160-400); Red Blood Count 4.33 X10*6/uL (4.60-5.80); Red Cell Distribution Width 12.4 % (11.0-16.0); White Blood Count 4.8 X10*3/uL (4.8-10.8)
[2023-01-17 14:15] LABS: Alanine Aminotransferase 39 U/L (0-40); Anion Gap 11 (12-20); Aspartate Amino Transferase 25 U/L (5-37); Blood Urea Nitrogen 15 mg/dL (9-16); Carbon Dioxide 27 mmol/L (22-29); Chloride 107 mmol/L (96-108); Cholesterol 97 mg/dL; Estimated Glomerular Filt Rate > 60; HDL Cholesterol 27 mg/dL; LDL Cholesterol Calculated 41 mg/dl; Potassium 4.7 mmol/L (3.3-5.1); Sodium 140 mmol/L (135-145); Triglycerides 145 mg/dL
== END 2023-01-17 10:51 | disposition home or self-care (01) ==
LOC: HO.10HDL 10:50
PROVIDERS: Visit Provider Family Medicine
DX: I10 Essential (primary) hypertension (principal); R06.02 Shortness of breath; E78.00 Pure hypercholesterolemia, unspecified; Z79.899 Other long term (current) drug therapy
CPT/HCPCS: 36415; 80051; 80061; 82565; 84450; 84460; 84520; 85025

== ENCOUNTER 2023-02-22 10:17 | Outpatient (AMB) | payer OTHER, SELFPAY ==
--- NOTE | 2023-02-22 10:20 | A.OFFVIS_ITS ---
Intake Vital Signs 02/22/23 10:21 Height 5 ft 4 in Weight 166 lb 10.711 oz BMI 28.6 BP 140/80 H Blood Pressure Location Lt brachial Position Sitting Pulse 73 Pulse Source Monitor Intake Visit Reasons: r/s 7mthn f/u per dc Intake Note: 7 month follow up with EKG. Associate Vice President Required: No Accompanied by: Self / Same As Patient Allergies No Known Allergies Allergy (Verified 02/22/23 10:22) Medication List - Last Reconciled 02/22/23 by Greg Tejeda MD atorvastatin 10 mg PO DAILY celecoxib 200 mg PO BID lamotrigine 25 mg PO lisinopril 10 mg PO DAILY memantine 5 mg PO BEDTIME metoprolol tartrate 25 mg PO BID omeprazole 20 mg PO BID trazodone 50 mg PO BEDTIME warfarin 2.5 mg PO BEDTIME HPI HPI Comments History of Present Illness Details 72-year-old gentleman here for follow-up. He was seen at [facility] as a consultation when he presented with lower GI bleed. He had endoscopy with polypectomy. Soon after that he presented with GI bleed. He underwent 2nd endoscopy and we were consulted about holding Coumadin in the setting of mechanical aortic valve. He has background of bicuspid aortic valve and severe aortic insufficiency for which she underwent aortic valve replacement with a mechanical aortic valve approximately [address] Neville. He was seeing Dr. Jasen Schultz in 2004 but since then he did not see a doctor. He denies any chest pain, shortness of breath, orthopnea, PND or syncope. His Coumadin was held for approximately a week and then resume. His INRs have been therapeutic and is following with [facility]. He had an echocardiogram while he was inpatient which showed normal left ventricular ejection fraction with the peak velocities across aortic valve of 3.34 meter/second. He has not been on baby aspirin. ECG: NSR, PVC, LAFB. He is here for follow-up. He recently had nosebleed from the left nostril after sneezing. He was in the ER and required Afrin and tranexamic acid locally which led to stopping of the bleeding. His blood pressure previously was elevated and is high again today. He had echocardiography which showed a normally functioning mechanical aortic valve but ejection fraction could not be quantified due to poor windows. There was some concern that the ejection fraction is mildly reduced at 45-50%. He is saying he has no significant symptoms in particular no chest pain or shortness of breath. He had 1 episode when came for echocardiography and was cold outside and when he walked back to the car he has some dyspnea but nothing persistent. His blood pressure was elevated on last visit and lisinopril 5 mg was added to his regimen which was increased to 10 mg with good blood pressure control. Today he returns after echocardiography. His ECHO is showing EF of 44% by biplane method. Visually it looks similar to before and is approximately 40- 45% EF. Again he has no symptoms on follow-up. He is denying chest discomfort shortness of breath. Taking medications regularly blood pressure control is better. 02/22/23: He returns for follow-up. He had echocardiography in October 2021 when he was noticed to have EF of 45-50% with indeterminate filling pressures and reduced global longitudinal strain. Normal right ventricular cavity size and function. Mechanical prosthetic aortic valve and a mean gradient of 11 mm Hg and mild aortic valve regurgitation was noticed. He is denying any chest discomfort. He gets out of breath when he is really pushing himself or going up stairs. No significant changes in symptomatology. He said he rushed into to the clinic as he was getting late and blood pressure is mildly elevated. Overall he has been doing well. 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 Review of Systems Const Denies weakness ENT Denies dizziness Card Denies chest pain, Denies chest pain with activity, Denies syncope, Denies rapid heart rate, Denies pedal edema, Denies edema, Denies leg edema, Denies lightheadedness, Denies palpitations, Denies dyspnea, Denies dyspnea on exertion and Denies orthopnea Resp Denies cough, Denies dyspnea and Denies dyspnea on exertion GI Denies hematochezia and Denies change in stool character Musc Denies abnormal gait, Denies muscle cramps, Denies muscle weakness, Denies numbness, Denies radiating pain into limb and Denies tingling Neuro Denies abnormal gait, Denies dizziness, Denies syncope, Denies numbness, Denies tingling and Denies weakness Endo Denies palpitations Physical Exam GENERAL APPEARANCE: in no acute distress, well developed, well nourished. NECK/THYROID: no carotid bruit, no jugular venous distention. SKIN: Xanthelasma right eye. HEART: Systolic murmur in the aortic area, mechanical 2nd heart sound. LUNGS: clear to auscultation bilaterally. ABDOMEN: normal, bowel sounds present, soft, nontender, nondistended. EXTREMITIES: no clubbing, cyanosis, or edema. PERIPHERAL PULSES: equal. NEUROLOGIC: nonfocal, alert and oriented. PSYCH: mood/affect full range. Office Procedures EKG Details: Sinus rhythm 73 beats per minute, first-degree AV block with NJ interval 290 milliseconds, left axis deviation, left ventricular hypertrophy, QTC 460 milliseconds. 35051-[id number], Complete Assessment & Plan Assessment & Plan (1) Essential hypertension: Code(s): I10 - Essential (primary) hypertension (2) Cardiomyopathy: Code(s): I42.9 - Cardiomyopathy, unspecified (3) S/P AVR: Comment: Mechanical valve. On Coumadin. Aspirin has been stopped because of previous GI bleed and recent nosebleed. Code(s): Z95.2 - Presence of prosthetic heart valve Plan Very pleasant 72-year-old gentleman who is here for follow-up. He has history of mechanical aortic valve replacement at [facility] in the past. He has been on Coumadin and follows at [facility] for his INR. He has no significant symptoms on follow-up. Clinically not in heart failure. Blood pressure is mildly elevated but he rushed into the clinic. I think overall stable. He has borderline reduced LVEF of 45-50% basal March 2020 to echo ardiography. Continue same medications. Follow up with us in 3-4 months. Thank you for allowing me to participate in the care of your patient. Please feel free to contact me if you have any questions. Coding Level of Care Code Est Pt Level 3 (72679) Diagnoses Essential hypertension I10 Cardiomyopathy I42.9 S/P AVR Z95.2 CPT Codes EKG - CPT: 14650-[id number], Complete ([id number])
[2023-02-22 10:21] VITALS: BP 140/80; PULSE 73; BMI 28.6
== END 2023-02-22 10:31 | disposition home or self-care (01) ==
PROVIDERS: PCP Family Medicine; Visit Provider Internal Medicine Cardiovascular Disease
DX: I10 Essential (primary) hypertension (principal); I42.9 Cardiomyopathy, unspecified; Z95.2 Presence of prosthetic heart valve
CPT/HCPCS: 93010; 99213

== ENCOUNTER → 2023-02-22 10:17 | Outpatient (BNVA) | payer OTHER, SELFPAY | PROVIDERS: PCP Family Medicine; Visit Provider Internal Medicine Cardiovascular Disease | DX: I10 Essential (primary) hypertension (principal); I42.9 Cardiomyopathy, unspecified; Z95.2 Presence of prosthetic heart valve | CPT/HCPCS: 93005 ==

== ENCOUNTER 2023-06-04 07:56 | Outpatient (AMB) | payer OTHER, SELFPAY ==
[2023-06-04 08:23] VITALS: BP 140/82; PULSE 75; BMI 28.5
--- NOTE | 2023-06-04 08:23 | MHC.OFFVIS ---
Intake Vital Signs 06/04/23 08:23 Height 5 ft 4 in Weight 166 lb 3.657 oz BMI 28.5 BP 140/82 H Blood Pressure Location Lt brachial Position Sitting Pulse 75 Pulse Source Pulse Oximeter Intake Visit Reasons: 3+ mth f/up [place] Reclamation Supervisor Required: No Allergies No Known Allergies Allergy (Verified 06/04/23 08:25) Medication List - Last Reconciled 06/04/23 by Luz Payton NP-C atorvastatin 10 mg PO DAILY celecoxib 200 mg PO BID lamotrigine 25 mg PO lisinopril 10 mg PO DAILY memantine 5 mg PO BEDTIME metoprolol tartrate 25 mg PO BID omeprazole 20 mg PO BID trazodone 50 mg PO BEDTIME warfarin 2.5 mg PO BEDTIME HPI 3+ mth f/up KM HPI Details Michael is a 72-year-old male with past medical history of hypertension, hyperlipidemia, LVH, status post mechanical aortic valve replacement, mild cardiomyopathy who presents for follow-up. Today he reports that he has been doing well with no concerning symptoms. 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 He says he does not do much for physical activity. If he climbs more than 2 flights of stairs he does have some fatigue. He denies chest discomfort at rest or with activity. No shortness of breath, palpitations, presyncope, syncope, PND, orthopnea or edema. No bleeding issues reported. Taking all meds as directed. 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 Review of Systems Const All systems reviewed & are unremarkable except as noted in HPI and below ENT Denies dizziness Card Denies chest pain, Denies chest pain at rest, Denies chest pain with activity, Denies rapid heart rate, Denies pedal edema, Denies edema, Denies leg edema, Denies lightheadedness, Denies palpitations, Denies dyspnea, Denies dyspnea on exertion and Denies orthopnea Resp Denies cough, Denies dyspnea and Denies dyspnea on exertion GI Denies hematochezia and Denies change in stool character Musc Denies abnormal gait, Denies limited range of motion, Denies muscle cramps, Denies muscle weakness, Denies numbness, Denies radiating pain into limb, Denies stiffness and Denies tingling Neuro Denies abnormal gait, Denies dizziness, Denies numbness and Denies tingling Endo Denies palpitations Physical Exam Vital Signs: BMI result Body Mass Index 28.5 Const General: cooperative, healthy appearing, comfortable and no acute distress Orientation/consciousness: patient oriented x3 Neck Neck: Yes normal visual inspection Resp Effort & Inspection: normal respiratory effort Auscultation: clear to auscultation bilaterally, no crackles, no rales, no rhonchi and no wheezes Cardio Jugular venous distension: no JVD Rate: regular rate Rhythm: regular rhythm Heart sounds: S1 normal heart sound present, S2 normal heart sound present, Clicking heart sound present (aortic region), no gallops, no murmurs and no rubs Neuro General: patient oriented x3 Extrem General: Yes normal to inspection and No no pedal edema Psych Appearance: grossly normal Mental Status: mental status grossly normal Speech and movement: Normal speech and movement present Assessment & Plan Assessment & Plan (1) S/P AVR: Comment: Mechanical valve. On Coumadin. Aspirin has been stopped because of previous GI bleed and recent nosebleed. Code(s): Z95.2 - Presence of prosthetic heart valve Plan: History of aortic valve replacement with a mechanical aortic valve approximately [address] Mendosa. He is on Coumadin for anticoagulation. INR goal 3. Follow[place] with [facility]. No recent bleeding issues. Has had issues with GI bleeding and epistaxis in the past. Last echocardiogram done 11/10/2021 showing EF 45-50%, normally functioning mechanical aortic valve, mean gradient 11 mmHg. [place] click audible on examination. No reports of shortness of breath, leg edema. Good activity tolerance. Will obtain echo prior to next visit. Cardiology follow-up in 6 months, sooner if needed. (2) Cardiomyopathy: Code(s): I42.9 - Cardiomyopathy, unspecified Qualifiers: Cardiomyopathy type: unspecified Qualified Code(s): I42.9 - Cardiomyopathy, unspecified Plan: Mild cardiomyopathy noted on prior echoes. Last echo as above. On examination today he has no clinical signs of heart failure. He is on lisinopril and metoprolol for neurohormonal modulation. Labs done 01/17/2023 showed potassium 4.7, creatinine 1.12. Continue current management. Signs and symptoms of heart failure reviewed. (3) LVH (left ventricular hypertrophy): Code(s): I51.7 - Cardiomegaly Plan: Blood pressure mildly elevated today. He tells me he just took his medications prior to coming here. He follows with PCP routinely. If blood pressure remains elevated then his lisinopril dose can be increased. (4) Essential hypertension: Code(s): I10 - Essential (primary) hypertension Plan: As above (5) Hyperlipidemia: Comment: Continue atorvastatin 10 mg once a day. Code(s): E78.5 - Hyperlipidemia, unspecified Qualifiers: Hyperlipidemia type: unspecified Qualified Code(s): E78.5 - Hyperlipidemia, unspecified Plan: [place] LDL goal less than 100. He is on atorvastatin 10 mg daily. Labs done 01/17/2023 showed LDL 41. Continue current treatment Orders: Orders CA echo transthoracic complete 5 Months I42.9 - Cardiomyopathy, unspecified, Z95.2 - Presence of prosthetic heart valve Coding Level of Care Code Est Pt Level 4 (85852) Diagnoses S/P AVR Z95.2 Cardiomyopathy, unspecified type I42.9 Cardiomyopathy type: unspecified LVH (left ventricular hypertrophy) I51.7 Essential hypertension I10 Hyperlipidemia, unspecified hyperlipidemia type E78.5 Hyperlipidemia type: unspecified Time Spent (min) 26
== END 2023-06-04 08:50 | disposition home or self-care (01) ==
PROVIDERS: PCP Family Medicine; Visit Provider Nurse Practitioner Family
DX: Z95.2 Presence of prosthetic heart valve (principal); I42.9 Cardiomyopathy, unspecified; I51.7 Cardiomegaly; I10 Essential (primary) hypertension; E78.5 Hyperlipidemia, unspecified
CPT/HCPCS: 99214

== ENCOUNTER → 2023-06-04 07:56 | Outpatient (BNVA) | payer OTHER, SELFPAY | PROVIDERS: PCP Family Medicine; Visit Provider Nurse Practitioner Family ==

== ENCOUNTER 2023-09-26 07:52 | Outpatient (REF) | payer OTHER, SELFPAY ==
[2023-09-26 11:18] LABS: MANUAL DIFF FLAG NO
[2023-09-26 11:24] LABS: Basophils Percent Auto 0.8 % (0-2); Eosinophils Absolute Auto 0.2 X10*3/uL (0.0-0.4); Eosinophils Percent Auto 4.6 % (0-4); Hematocrit 42.7 % (42.0-52.0); Hemoglobin 14.6 g/dl (14.0-18.0); Imm Gran Abs Auto 0.02 X10*3/uL (0.00-0.03); Imm Gran Pct Auto 0.4 % (0.0-0.4); Lymphocytes Absolute Auto 1.1 X10*3/uL (1.2-4.9); Lymphocytes Percent Auto 21.3 % (20-40); Mean Corpuscular HGB Conc 34.2 g/dl (31.0-36.0); Mean Corpuscular Hemoglobin 32.7 pg (27.0-33.0); Mean Corpuscular Volume 95.5 fL (80.0-98.0); Mean Platelet Volume 10.8 fL (9.4-12.4); Monocytes Absolute Auto 0.6 X10*3/uL (0.1-1.2); Monocytes Percent Auto 11.4 % (2-11); Neutrophils Absolute Auto 3.1 x10*3/uL (2.0-8.3); Neutrophils Percent Auto 61.5 % (45-73); Platelet Count 170 X10*3/uL (160-400); Red Blood Count 4.47 X10*6/uL (4.60-5.80); Red Cell Distribution Width 12.1 % (11.0-16.0)
[2023-09-26 11:45] LABS: Alanine Aminotransferase 39 U/L (0-40); Anion Gap 7 (12-20); Aspartate Amino Transferase 29 U/L (5-37); Blood Urea Nitrogen 17 mg/dL (9-16); Carbon Dioxide 31 mmol/L (22-29); Chloride 105 mmol/L (96-108); Estimated Glomerular Filt Rate > 60; Potassium 4.2 mmol/L (3.3-5.1); Sodium 139 mmol/L (135-145)
== END 2023-09-26 07:53 | disposition home or self-care (01) ==
LOC: HO.HMGCLDS 07:52
PROVIDERS: PCP Family Medicine; Visit Provider Family Medicine
DX: I10 Essential (primary) hypertension (principal); R06.02 Shortness of breath; E78.00 Pure hypercholesterolemia, unspecified; Z79.899 Other long term (current) drug therapy
CPT/HCPCS: 36415; 80051; 82550; 82565; 84450; 84460; 84520; 85025

== ENCOUNTER → 2023-11-05 07:55 | Outpatient (REF) | payer OTHER, SELFPAY ==
--- NOTE | 2023-11-05 07:58 | CA_ITS ---
Transthoracic Echocardiogram Patient (Last, First, Middle): Michael Farrell E Gender: Male Date of : 1950 Age: 72 Procedure Date: 11/05/2023 Procedure Type: Transthoracic Echocardiogram Location: OP Height: 162.56 cm Weight: 74.84 kg BSA: 1.80 m2 Heart Rate: bpm BP: 142 / 84 mmHg Header Boss: MYLES Referring MD: Luz Payton ONLINE EDUCATION MANAGER-C Rib Chopper: Martin Shaw MD Symptoms: Z95.2 - Presence of prosthetic heart valve Study Quality: Fair ECG Rhythm: Sinus Conclusions: - 1. Moderately reduced LV ejection fraction of 35-40% with grade 1 diastolic dysfunction 2. Normally functioning mechanical aortic valve with mean gradient of 11 mm Hg 3. Normal RV systolic pressure 4. Pulmonary normal ascending aortic size at 3.5 cm 5. No gross pericardial effusion Findings Left Ventricle Normal left ventricular cavity size. There is normal left ventricular wall thickness. The left ventricular systolic function is moderately decreased. The visually estimated ejection fraction is between 35-40%. There is moderate global hypokinesis. There is paradoxical septal motion consistent with a left bundle branch block. Spectral Doppler is indicative of an impaired relaxation filling pattern. E/E prime ratio is <8, consistent with normal filling pressures. Evidence suggests grade I (mild) diastolic dysfunction. Peak GLS is -12.8%, which is moderately reduced. Right Ventricle Normal right ventricular cavity size. There is moderately decreased right ventricular systolic function. Atria The left atrium is mildly dilated. There is no evidence of interatrial shunt. The right atrium is likely dilated. Aortic Valve A mechanical prosthetic aortic valve is present. The prosthetic aortic valve appears to be functioning normally. The mean gradient is 11 mmHg. There is trace (trivial) aortic valve regurgitation. Mitral Valve There is mild anterior and posterior mitral leaflet thickening. There is trace mitral valve regurgitation. There is no mitral valve stenosis. Pulmonic Valve The pulmonic valve is likely normal. There is mild pulmonic valve regurgitation. Tricuspid Valve Normal tricuspid valve structure. There is mild tricuspid valve regurgitation. The right ventricular systolic pressure is normal. The right ventricular systolic pressure is 20 mmHg. Normal right atrial pressure. There is no evidence of pulmonary hypertension. Great Vessels The pulmonary artery was not well visualized. Venous The inferior vena cava is normal in size and collapses greater than 50% with inspiration. Pericardium/Pleural There is no evidence of pericardial effusion. Prior Study Comparison Changes noted compared to prior study dated: 11/10/2021. LV ejection fraction is reduced Measurements 2D Linear Measurements IVSd: 1.30 0.6-0.9/0.6-1.0 cm LVIDd: 5.32 3.9-5.3/4.2-5.9 cm LVIDd Index: 2.96 2.4-3.2/2.2-3.1 cm/m2 LVIDs: 4.59 2.0-3.6 cm LVPWd: 0.98 0.7-1.1 cm LA Diam: 3.10 2.7-3.8/3.0-4.0 cm LAIDs Index: 1.72 1.5-2.3 cm/m2 LV Mass: 300.12 67-162/88-224 g LV Mass Index: 166.74 43-95/49-115 g/m2 LVOT Diam: 2.00 3.0+(-)1.3 cm 2D Systolic Function EF 4C: 35.40 >55% EF 2C: 46.70 >55% EF BiP: 37.70 >55% Mitral Valve MV Pk E: 0.33 MV PK A: 0.75 MV Decel Time: 145.00 E/A: 0.40 E'Lateral: 4.68 E'Medial: 3.26 E/E' Med: 10.20 E/E' Lat: 7.10 PHT: 42.00 MVA PHT: 5.24 Decel Page: 2.31 Aortic Valve AoV Pk Magdy: 2.32 AoV Mn Magdy: 1.55 AoV VTI: 0.44 AoV Pk Grad: 22.00 Aov Mn Grad: 11.00 FLORESITA Cont.VTI: 1.26 LVOT LVOT Pk Magdy: 0.84 LVOT Mn Magdy: 0.54 LVOT VTI: 0.18 LVOT Pk Grad: 3.00 LVOT Mn Grad: 1.00 LVOT Diam: 2.00 LVOT Area: 3.14 Diastolic Function MV Pk E: 0.33 MV Pk A: 0.75 E/A: 0.40 E'Medial: 3.26 E/E' Med: 10.20 E' Laterial: 4.68 E/E' Lat: 7.10 Right Ventricle TAPSE (mm): 11.30 TVS' Magdy: 6.42 Tricuspid Valve TR Pk Magdy: 2.04 TR Pk Grad: 17.00 RA Press: 3.00 RVSP: 20.00 Great Vessels Aorta Ao Asc: 3.50 2.1-3.4 cm Updated in Other Vendor System with Status of Final Martin Shaw MD electronically signed on 11/05/2023 12:50:54 PM with status of Final
== END ==
LOC: HO.CARD 07:55
PROVIDERS: PCP Family Medicine; Visit Provider Nurse Practitioner Family
DX: I42.9 Cardiomyopathy, unspecified (principal); Z95.2 Presence of prosthetic heart valve
CPT/HCPCS: 93306; 93356

== ENCOUNTER → 2023-11-05 07:58 | Outpatient (BNV) | payer OTHER, SELFPAY | PROVIDERS: PCP Family Medicine; Visit Provider Internal Medicine Cardiovascular Disease | DX: I36.1 Nonrheumatic tricuspid (valve) insufficiency (principal); R93.1 Abnormal findings on diagnostic imaging of heart and coronary circulation; Z95.2 Presence of prosthetic heart valve | CPT/HCPCS: 93306; 93356 ==

== ENCOUNTER → 2023-12-07 07:37 | Outpatient (REF) | payer OTHER, SELFPAY ==
--- NOTE | ~2023-12-07 | NM_ITS ---
Lexiscan Myocardial perfusion study Indication: Cardia myopathy, assess for coronary disease and ischemia Technique: The patient was brought in for a Lexiscan perfusion study on 12/07/2023 and was injected 0.4 mg of Lexiscan intravenously. Within a minute of this injection 25 mCi of sestamibi was given intravenously. Images were obtained using the SPECT gamma camera interlaced with the gating device. Images were obtained in supine position. Resting perfusion study was performed on 12/10/2023. Patient was administered 25 mCi of sestamibi intravenously at rest. Images were then obtained in supine position. Images were processed with the software and compared side to side in short axis, horizontal long axis and vertical long axis views. Total DLP 93mGy-cm. Findings: Raw acquisition reviewed. Possibly motion artifact during resting acquisition. The stress perfusion study showed diminished tracer uptake along the inferior wall. There is improvement with CT attenuation correction suggestive of diaphragmatic attenuation artifact. The gated study shows diminished LV systolic function with calculated LVEF of 39%. LV cavity is dilated in size. The gated study shows globally reduced wall thickening and contraction of segments. Resting study shows reduced tracer uptake along the inferior wall. There is improvement with CT attenuation correction suggestive of diaphragmatic attenuation artifact. Gating at rest reveals globally reduced wall motion with ejection fraction at 30%. The findings are consistent with fixed inferior perfusion defect, suspected to be from diaphragmatic attenuation artifact. No clear reversible defects. NM/NM cardiolite stress test Impression: 1. Myocardial perfusion imaging study shows probably normal myocardial perfusion. Fixed inferior perfusion defect, suspected to be from diaphragmatic attenuation artifact. 2. Gated LVEF is 39% during stress and 30% during rest. Correlate with echocardiogram. 3. Transient ischemic dilatation not present. EKG component of the test reported separately.
--- NOTE | 2023-12-07 07:39 | CA_ITS ---
Acquisition Time: 2023-12-07 07:54:05 Total Exercise Time: 00:05:52 Test Indications: CARDIOMYOPATHY Medications: SEE H Protocol: MESHA Max HR: 090 BPM 60% of Pred: 149 BPM Max BP: 166/088 mmHG Max Work Load: 4.6 METS Exercise stress test exercise 2 min 30 sec of Mesha protocol achieving 57% MPHR with report of leg pain and fatigue and not able to go faster, treadmill flatten and slowed down and pharmacoligcal stress test performed. Lexiscan injection while walking slowly on the treadmill, without chest pain, with mild SOB, with isolated PVCs, PACsand ventrcular cuplets, with resting HTN and normotensive response to injection, with nondiagnoisitic EKGs. Nuclear images pending. Test reviewed with Dr. Tejeda. Referred By: Luz Payton Overread By: Gloria Ordoñez
== END ==
LOC: HO.CARD 07:37
PROVIDERS: PCP Family Medicine; Visit Provider Nurse Practitioner Family
DX: I42.9 Cardiomyopathy, unspecified (principal); I10 Essential (primary) hypertension; Z95.2 Presence of prosthetic heart valve
CPT/HCPCS: 78452; 93017; A9500; J0280; J2785

== ENCOUNTER → 2023-12-07 07:39 | Outpatient (BNV) | payer OTHER, SELFPAY | PROVIDERS: PCP Family Medicine; Visit Provider Nurse Practitioner | DX: I42.9 Cardiomyopathy, unspecified (principal) | CPT/HCPCS: 78452; 93016; 93018 ==

== ENCOUNTER 2023-12-10 08:57 | Outpatient (AMB) | payer OTHER, SELFPAY ==
[2023-12-10 08:59] VITALS: BP 142/70; PULSE 70; BMI 28.6
--- NOTE | 2023-12-10 08:59 | A.OFFVIS_ITS ---
Vital Signs 12/10/23 08:59 Height 5 ft 4 in Weight 166 lb 10.711 oz BMI 28.6 BP 142/70 H Blood Pressure Location Lt brachial Position Sitting Pulse 70 Pulse Source Pulse Oximeter Intake Visit Reasons: f/up testing Customer Service Cashier Required: No Allergies No Known Allergies Allergy (Verified 12/10/23 09:01) Medication List - Last Reconciled 12/10/23 by Luz Payton, LISA-C atorvastatin 10 mg PO DAILY celecoxib 200 mg PO BID lamotrigine 25 mg PO lisinopril 10 mg PO DAILY memantine 5 mg PO BEDTIME metoprolol tartrate 25 mg PO BID omeprazole 20 mg PO BID trazodone 50 mg PO BEDTIME warfarin 2.5 mg PO BEDTIME HPI HPI f/up testing: Details: Michael is a 72-year-old male with past medical history of hypertension, hyperlipidemia, LVH, status post mechanical aortic valve replacement, mild cardiomyopathy who presents for follow-up after recent echocardiogram and n uclear stress test. Today he reports that he has been doing well with no concerning symptoms. 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 He says he does not do much for physical activity. If he climbs more than 2 flights of stairs he does have some fatigue and shortness of breath which he says is not new. He denies chest discomfort at rest or with activity. No shortness of breath at rest, palpitations, presyncope, syncope, PND, orthopnea or edema. No bleeding issues reported. Taking all meds as directed. 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 Review of Systems Const All systems reviewed & are unremarkable except as noted in HPI and below ENT Denies dizziness Card Denies chest pain, Denies chest pain at rest, Denies chest pain with activity, Denies rapid heart rate, Denies pedal edema, Denies edema, Denies leg edema, Denies lightheadedness, Denies palpitations, Denies dyspnea, Reports dyspnea on exertion and Denies orthopnea Resp Denies cough, Denies dyspnea and Reports dyspnea on exertion GI Denies hematochezia and Denies change in stool character Musc Denies abnormal gait, Denies limited range of motion, Denies muscle cramps, Denies muscle weakness, Denies numbness, Denies radiating pain into limb, Denies stiffness and Denies tingling Neuro Denies abnormal gait, Denies dizziness, Denies numbness and Denies tingling Endo Denies palpitations Physical Exam Vital Signs: Last Vital Signs Pulse 70 12/10/23 08:59 BP 142/70 H 12/10/23 08:59 BMI result Body Mass Index 28.6 Const General: cooperative, healthy appearing, comfortable and no acute distress Orientation/consciousness: patient oriented x3 Neck Neck: Yes normal visual inspection Resp Effort & Inspection: normal respiratory effort Auscultation: clear to auscultation bilaterally, no crackles, no rales, no rhonchi and no wheezes Cardio Jugular venous distension: no JVD Rate: regular rate Rhythm: regular rhythm Heart sounds: S1 normal heart sound present, S2 normal heart sound present, no murmurs and no rubs Neuro General: patient oriented x3 Extrem General: Yes normal to inspection, No no pedal edema and No calf tenderness Psych Appearance: grossly normal Mental Status: mental status grossly normal Speech and movement: Normal speech and movement present Office Procedures EKG Details: Today, read by me, sinus rhythm with long first-degree AV block and second- degree AV block, Mobitz 1, left axis deviation, LVH with QRS widening and repolarization abnormality, rate 61, QTC 430 milliseconds [id number], Complete Assessment & Plan Assessment & Plan (1) S/P AVR: Comment: Mechanical valve. On Coumadin. Aspirin has been stopped because of previous GI bleed and recent nosebleed. Code(s): Z95.2 - Presence of prosthetic heart valve Category: Surgical Plan: History of aortic valve replacement with a mechanical aortic valve approximately [address] Mendosa. He is on Coumadin for anticoagulation. INR goal 3. Follows with [facility] [place] anticoagulation Clinic. No recent bleeding issues. Has had issues with GI bleeding and epistaxis in the past. Labs done on 09/26/2023 showed hematocrit 42.7. Echocardiogram done 11/10/2021 showing EF 45-50%, normally functioning mechanical aortic valve, mean gradient 11 mmHg. A repeat echo was done on 11/05/2023 showing EF 35-40%, normally functioning mechanical aortic valve with mean gradient 11 mmHg. Pine click audible on examination. Test results reviewed with him. Endocarditis prophylaxis reviewed. (2) Cardiomyopathy: Code(s): I42.9 - Cardiomyopathy, unspecified Category: Medical Qualifiers: Cardiomyopathy type: unspecified Qualified Code(s): I42.9 - Cardiomyopathy, unspecified Plan: Mild cardiomyopathy noted on prior echoes. Last echo as above with drop in EF from 45-50 down to 35-40%. He did undergo a nuclear stress test however results are not available at the time of this visit. I plan to review those results and call him. He has no report of anginal sounding symptoms. He has no signs of heart failure on examination today. He is on lisinopril and metoprolol for neurohormonal modulation. With a drop in his EF I will have him stop lisinopril then after 36 hours changed over to Entresto. Labs done 09/26/2023 showed pot assium 4.2, creatinine 1.13. Signs and symptoms of heart failure reviewed with him. (3) Mobitz type 1 second degree atrioventricular block: Code(s): I44.1 - Atrioventricular block, second degree Category: Medical Plan: EKG done today shows sinus rhythm with long first-degree AV block, evidence of second-degree heart block type 1, rate 61. Asymptomatic. First-degree AV block was seen on prior EKG however now it is longer. Recent echo as above. Will check a Holter monitor to assess for significant Miguel, pauses, more advanced heart block. At this time will have him continue on his low-dose metoprolol. (4) First degree AV block: Code(s): I44.0 - Atrioventricular block, first degree Category: Medical Plan: As above (5) Essential hypertension: Code(s): I10 - Essential (primary) hypertension Category: Medical Plan: As above (6) LVH (left ventricular hypertrophy): Code(s): I51.7 - Cardiomegaly Category: Medical Plan: Blood pressure mildly elevated today. He tells me he just took his medications prior to coming here. Will be changing his lisinopril to Entresto. (7) Hyperlipidemia: Comment: Continue atorvastatin 10 mg once a day. Code(s): E78.5 - Hyperlipidemia, unspecified Category: Medical Qualifiers: Hyperlipidemia type: unspecified Qualified Code(s): E78.5 - Hyperlipidemia, unspecified Plan: LDL goal less than 100, ideally less than 70. Labs done on 01/17/2023 showed LDL 41. Continue atorvastatin 10 mg daily. He is due for for further lab work. Plan Time spent on chart review, documentation, interview and assessment Orders: Orders ECG 3 day holter monitor Today I44.0 - Atrioventricular block, first degree, I44.1 - Atrioventricular block, second degree Medications: New sacubitril-valsartan 24-26 mg (Entresto) Replaces Lisinopril. No Lisinopril for at least 36hrs prior to start of Entresto 1 tab PO BID 60 tabs 5RF Discontinued lisinopril Discontinued Reason: Doctor's Order 10 mg PO DAILY 90 tabs 3RF I10 - Essential (primary) hypertension Coding Level of Care Code Est Pt Level 4 (87310) Diagnoses S/P AVR Z95.2 Cardiomyopathy, unspecified type I42.9 Cardiomyopathy type: unspecified Mobitz type 1 second degree atrioventricular block I44.1 First degree AV block I44.0 Essential hypertension I10 LVH (left ventricular hypertrophy) I51.7 Hyperlipidemia, unspecified hyperlipidemia type E78.5 Hyperlipidemia type: unspecified CPT Codes EKG - CPT: [id number], Complete ([id number]) Time Spent (min) 30
== END 2023-12-10 09:41 | disposition home or self-care (01) ==
PROVIDERS: PCP Family Medicine; Visit Provider Nurse Practitioner Family
DX: Z95.2 Presence of prosthetic heart valve (principal); I42.9 Cardiomyopathy, unspecified; I44.1 Atrioventricular block, second degree; I44.0 Atrioventricular block, first degree; I10 Essential (primary) hypertension; I51.7 Cardiomegaly; E78.5 Hyperlipidemia, unspecified
CPT/HCPCS: 93010; 99214

== ENCOUNTER → 2023-12-10 08:57 | Outpatient (BNVA) | payer OTHER, SELFPAY | PROVIDERS: PCP Family Medicine; Visit Provider Nurse Practitioner Family | DX: I42.9 Cardiomyopathy, unspecified (principal); I44.1 Atrioventricular block, second degree; I11.9 Hypertensive heart disease without heart failure; E78.5 Hyperlipidemia, unspecified; Z95.2 Presence of prosthetic heart valve; Z79.01 Long term (current) use of anticoagulants; Z79.899 Other long term (current) drug therapy | CPT/HCPCS: 93005 ==

== ENCOUNTER → 2023-12-17 14:32 | Outpatient (REF) | payer OTHER, SELFPAY ==
--- NOTE | 2023-12-17 14:34 | HM_ITS ---
* Total monitoring time 3 days. * Underlying rhythm is sinus with an average rate of 76/Min. * Frequent ventricular ectopy with a burden of 8.5%. Mostly all isolated beats. Rare couplets. No significant runs. * Evidence of Mobitz type 1 second-degree heart block during sleep hours. * Patient marker used once in association with sinus rhythm and PVC. * Symptoms of shortness of breath correlates with sinus rhythm and ventricular ectopy. MTDD
== END ==
LOC: HO.CARD 14:32
PROVIDERS: PCP Family Medicine; Visit Provider Nurse Practitioner Family
DX: I44.1 Atrioventricular block, second degree (principal)
CPT/HCPCS: 93242

== ENCOUNTER → 2023-12-17 14:34 | Outpatient (BNV) | payer OTHER, SELFPAY | PROVIDERS: PCP Family Medicine; Visit Provider Internal Medicine | DX: I44.1 Atrioventricular block, second degree (principal); I49.3 Ventricular premature depolarization | CPT/HCPCS: 93244 ==

== ENCOUNTER 2024-01-10 08:40 | Outpatient (AMB) | payer OTHER, SELFPAY ==
[2024-01-10 08:49] VITALS: BP 134/72; PULSE 71; BMI 28.8
--- NOTE | 2024-01-10 08:49 | A.OFFVIS_ITS ---
Vital Signs 01/10/24 08:49 Height 5 ft 4 in Weight 167 lb 15.876 oz BMI 28.8 BP 134/72 Blood Pressure Location Lt brachial Position Sitting Pulse 71 Pulse Source Pulse Oximeter Intake Visit Reasons: 1m follow up Professor Of Historical Theology Required: No Allergies No Known Allergies Allergy (Verified 01/10/24 08:51) Medication List - Last Reconciled 01/10/24 by Luz Payton, LISA-C atorvastatin 10 mg PO DAILY celecoxib 200 mg PO BID lamotrigine 25 mg PO memantine 5 mg PO BEDTIME metoprolol tartrate 25 mg PO BID omeprazole 20 mg PO BID sacubitril-valsartan 24-26 mg (Entresto) 1 tab PO BID trazodone 50 mg PO BEDTIME warfarin 2.5 mg PO BEDTIME HPI HPI 1m follow up: Details: Michael is a 73-year-old male with past medical history of hypertension, hyperlipidemia, LVH, status post mechanical aortic valve replacement, mild cardiomyopathy who presents for follow-up after recent nuclear stress test and Holter monitor. Today he reports that he has been doing well with no concerning symptoms. 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 He says he does not do much for physical activity. If he climbs more than 2 flights of stairs he does have some fatigue and shortness of breath which he says is not new. He denies chest discomfort at rest or with activity. No shortness of breath at rest, palpitations, presyncope, syncope, PND, orthopnea or edema. No bleeding issues reported. Taking all meds as directed. 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 Review of Systems Const All systems reviewed & are unremarkable except as noted in HPI and below Reports fatigue ENT Denies dizziness Card Denies chest pain, Denies chest pain at rest, Denies chest pain with activity, Denies rapid heart rate, Denies pedal edema, Denies edema, Denies leg edema, Denies lightheadedness, Denies palpitations, Denies dyspnea, Denies dyspnea on exertion and Denies orthopnea Resp Denies cough, Denies dyspnea and Denies dyspnea on exertion GI Denies hematochezia and Denies change in stool character Musc Denies abnormal gait, Denies limited range of motion, Denies muscle cramps, Denies muscle weakness, Denies numbness, Denies radiating pain into limb, Denies stiffness and Denies tingling Neuro Denies abnormal gait, Denies dizziness, Denies numbness and Denies tingling Endo Reports fatigue and Denies palpitations Physical Exam Vital Signs: Last Vital Signs Pulse 71 01/10/24 08:49 BP 134/72 01/10/24 08:49 BMI result Body Mass Index 28.8 Const General: cooperative, healthy appearing, comfortable and no acute distress Orientation/consciousness: patient oriented x3 Neck Neck: Yes normal visual inspection and Yes no JVD Resp Effort & Inspection: normal respiratory effort Auscultation: clear to auscultation bilaterally, no crackles, no rales, no rhonchi and no wheezes Cardio Jugular venous distension: no JVD Rate: regular rate Rhythm: regular rhythm Heart sounds: S1 normal heart sound present, S2 normal heart sound present, no murmurs and no rubs Neuro General: patient oriented x3 Extrem General: Yes normal to inspection, No no pedal edema and No calf tenderness Psych Appearance: grossly normal Mental Status: mental status grossly normal Speech and movement: Normal speech and movement present Assessment & Plan Assessment & Plan (1) Mobitz type 1 second degree atrioventricular block: Code(s): I44.1 - Atrioventricular block, second degree Category: Medical Plan: EKG done last visit shows sinus rhythm with long first-degree AV block, evidence of second-degree heart block type 1, rate 61. Asymptomatic. First-degree AV block was seen on prior EKG however now it is longer. Holter monitor done on 12/17/2023 for 3 days showing sinus rhythm with average heart rate 76, no significant pauses or bradycardia, evidence of Mobitz 1 rhythm. Pulse is in the normal range today. He has not had any lightheadedness, presyncope, syncope, falls. He is on metoprolol tartrate 25 mg b.i.d.. At this time will have him continue. Will review the above with his primary circulation crew leader. Cardiology office visit in 4 months, sooner if needed. (2) S/P AVR: Comment: Mechanical valve. On Coumadin. Aspirin has been stopped because of previous GI bleed and recent nosebleed. Code(s): Z95.2 - Presence of prosthetic heart valve Category: Surgical Plan: History of aortic valve replacement with a mechanical aortic valve approximately [address] Mendosa. He is on Coumadin for anticoagulation. INR goal 3. Follows with [facility] [place] [facility]. No recent bleeding issues. Has had issues with GI bleeding and epistaxis in the past. Labs done on 09/26/2023 showed hematocrit 42.7. Echocardiogram done 11/10/2021 showing EF 45-50%, normally functioning mechanical aortic valve, mean gradient 11 mmHg. A repeat echo was done on 11/05/2023 showing EF 35-40%, normally functioning mechanical aortic valve with mean gradient 11 mmHg. [place] click audible on examination. Test results reviewed with him. Endocarditis prophylaxis reviewed. (3) Cardiomyopathy: Code(s): I42.9 - Cardiomyopathy, unspecified Category: Medical Qualifiers: Cardiomyopathy type: unspecified Qualified Code(s): I42.9 - C ardiomyopathy, unspecified Plan: Mild cardiomyopathy noted on prior echoes. Last echo as above with drop in EF from 45-50 % down to 35-40%. He did undergo a nuclear stress test on 12/10/2023 showing probable normal myocardial perfusion, fixed inferior defect suspect diaphragm attenuation artifact. Unclear cause of his drop in EF. He denies any alcohol use. He does have some daytime sleepiness. Will check home sleep study to ensure no sleep apnea. He tells me that his daughter has sleep apnea and wears a mask. He has no report of anginal sounding symptoms. He has no signs of heart failure on examination today. He was started on Entresto last visit. He continues on metoprolol. Will have him obtain basic metabolic profile. If within normal limits then anticipate further titration of Entresto dose. Signs and symptoms of heart failure reviewed with him. (4) First degree AV block: Code(s): I44.0 - Atrioventricular block, first degree Category: Medical Plan: As above (5) Essential hypertension: Code(s): I10 - Essential (primary) hypertension Category: Medical Plan: As above (6) LVH (left ventricular hypertrophy): Code(s): I51.7 - Cardiomegaly Category: Medical Plan: Blood pressure normal today. Continue current meds. (7) Hyperlipidemia: Comment: Continue atorvastatin 10 mg once a day. Code(s): E78.5 - Hyperlipidemia, unspecified Category: Medical Qualifiers: Hyperlipidemia type: unspecified Qualified Code(s): E78.5 - Hyperlipidemia, unspecified Plan: LDL goal less than 100, ideally less than 70. Labs done on 01/17/2023 showed LDL 41. Continue atorvastatin 10 mg daily. He is due for for further lab work. Plan Time spent on chart review, documentation, interview and assessment Orders: Orders Lipid Panel Today E78.5 - Hyperlipidemia, unspecified RT home sleep study Today G47.10 - Hypersomnia, unspecified, I44.1 - Atrioventricular block, second degree Comprehensive Met. Panel Today E78.5 - Hyperlipidemia, unspecified, I10 - Essential (primary) hypertension Coding Level of Care Code Est Pt Level 4 (30090) Diagnoses Mobitz type 1 second degree atrioventricular block I44.1 S/P AVR Z95.2 Cardiomyopathy, unspecified type I42.9 Cardiomyopathy type: unspecified First degree AV block I44.0 Essential hypertension I10 LVH (left ventricular hypertrophy) I51.7 Hyperlipidemia, unspecified hyperlipidemia type E78.5 Hyperlipidemia type: unspecified Time Spent (min) 32
== END 2024-01-10 09:16 | disposition home or self-care (01) ==
PROVIDERS: PCP Family Medicine; Visit Provider Nurse Practitioner Family
DX: I44.1 Atrioventricular block, second degree (principal); Z95.2 Presence of prosthetic heart valve; I42.9 Cardiomyopathy, unspecified; I44.0 Atrioventricular block, first degree; I10 Essential (primary) hypertension; I51.7 Cardiomegaly; E78.5 Hyperlipidemia, unspecified
CPT/HCPCS: 99214

== ENCOUNTER → 2024-01-10 08:40 | Outpatient (BNVA) | payer OTHER, SELFPAY | PROVIDERS: PCP Family Medicine; Visit Provider Nurse Practitioner Family ==

== ENCOUNTER → 2024-02-14 13:48 | Outpatient (REF) | payer OTHER, SELFPAY | LOC: HO.SL 13:48 | PROVIDERS: PCP Family Medicine; Visit Provider Nurse Practitioner Family | DX: G47.10 Hypersomnia, unspecified (principal); R06.83 Snoring | CPT/HCPCS: 95806 ==

== ENCOUNTER → 2024-02-14 13:57 | Outpatient (BNV) | payer OTHER, SELFPAY | PROVIDERS: PCP Family Medicine; Visit Provider Internal Medicine | DX: R06.83 Snoring (principal) | CPT/HCPCS: 95806 ==

== ENCOUNTER 2024-05-07 06:56 | Outpatient (REF) | payer OTHER, SELFPAY ==
[2024-05-07 09:56] LABS: MANUAL DIFF FLAG NO
[2024-05-07 10:11] LABS: Basophils Absolute Auto 0.1 X10*3/uL (0.0-0.2); Basophils Percent Auto 0.9 % (0-2); Eosinophils Absolute Auto 0.3 X10*3/uL (0.0-0.4); Eosinophils Percent Auto 4.6 % (0-4); Hematocrit 43.2 % (42.0-52.0); Hemoglobin 14.8 g/dl (14.0-18.0); Imm Gran Abs Auto 0.02 X10*3/uL (0.00-0.03); Imm Gran Pct Auto 0.4 % (0.0-0.4); Lymphocytes Absolute Auto 1.4 X10*3/uL (1.2-4.9); Lymphocytes Percent Auto 24.8 % (20-40); Mean Corpuscular HGB Conc 34.3 g/dl (31.0-36.0); Mean Corpuscular Hemoglobin 32.7 pg (27.0-33.0); Mean Corpuscular Volume 95.6 fL (80.0-98.0); Mean Platelet Volume 10.6 fL (9.4-12.4); Monocytes Absolute Auto 0.6 X10*3/uL (0.1-1.2); Monocytes Percent Auto 11.4 % (2-11); Neutrophils Absolute Auto 3.2 x10*3/uL (2.0-8.3); Neutrophils Percent Auto 57.9 % (45-73); Platelet Count 182 X10*3/uL (160-400); Red Blood Count 4.52 X10*6/uL (4.60-5.80); Red Cell Distribution Width 12.4 % (11.0-16.0); White Blood Count 5.6 X10*3/uL (4.8-10.8)
[2024-05-07 10:26] LABS: Alanine Aminotransferase 41 U/L (0-40); Anion Gap 11 (12-20); Aspartate Amino Transferase 31 U/L (5-37); Blood Urea Nitrogen 12 mg/dL (9-16); Carbon Dioxide 29 mmol/L (22-29); Chloride 106 mmol/L (96-108); Estimated Glomerular Filt Rate 60; Potassium 4.2 mmol/L (3.3-5.1); Sodium 142 mmol/L (135-145)
== END 2024-05-07 06:57 | disposition home or self-care (01) ==
LOC: HO.HMGCLDS 06:56
PROVIDERS: PCP Family Medicine; Visit Provider Family Medicine
DX: I10 Essential (primary) hypertension (principal); E78.00 Pure hypercholesterolemia, unspecified; R53.83 Other fatigue
CPT/HCPCS: 36415; 80051; 82550; 82565; 84450; 84460; 84520; 85025

== ENCOUNTER 2024-05-26 13:25 | Outpatient (AMB) | payer OTHER, SELFPAY ==
[2024-05-26 13:29] VITALS: BP 130/62; PULSE 80; BMI 28.4
--- NOTE | 2024-05-26 13:29 | A.OFFVIS_ITS ---
Vital Signs 05/26/24 13:29 Height 5 ft 4 in Weight 165 lb 5.547 oz BMI 28.4 BP 130/62 Blood Pressure Location Lt brachial Position Sitting Pulse 80 Pulse Source Pulse Oximeter Intake Visit Reasons: 4m follow up Intake Note: 4 mth f/up Living Nurse Required: No Accompanied by: Self / Same As Patient Allergies No Known Allergies Allergy (Verified 01/10/24 08:51) Medication List - Last Reconciled 05/26/24 by Greg Tejeda MD atorvastatin 10 mg PO DAILY celecoxib 200 mg PO BID lamotrigine 25 mg PO memantine 5 mg PO BEDTIME metoprolol tartrate 25 mg PO BID omeprazole 20 mg PO BID sacubitril-valsartan 24-26 mg (Entresto) 1 tab PO BID trazodone 50 mg PO BEDTIME warfarin 2.5 mg PO BEDTIME HPI Comments Details: 73-year-old gentleman here for follow-up. He was seen at [facility] as a consultation when he presented with lower GI bleed. He had endoscopy with polypectomy. Soon after that he presented with GI bleed. He underwent 2nd endoscopy and we were consulted about holding Coumadin in the setting of mechanical aortic valve. He has background of bicuspid aortic valve and severe aortic insufficiency for which she underwent aortic valve replacement with a mechanical aortic valve approximately [address] Neville. He was seeing Dr. Jasen Schultz in 2004 but since then he did not see a doctor. He denies any chest pain, shortness of breath, orthopnea, PND or syncope. His Coumadin was held for approximately a week and then resume. His INRs have been therapeutic and is following with [facility]. He had an echocardiogram while he was inpatient which showed normal left ventricular ejection fraction with the peak velocities across aortic valve of 3.34 meter/second. He has not been on baby aspirin. ECG: NSR, PVC, LAFB. He is here for follow-up. He recently had nosebleed from the left nostril after sneezing. He was in the ER and required Afrin and tranexamic acid locally which led to stopping of the bleeding. His blood pressure previously was elevated and is high again today. He had echocardiography which showed a normally functioning mechanical aortic valve but ejection fraction could not be quantified due to poor windows. There was some concern that the ejection fraction is mildly reduced at 45-50%. He is saying he has no significant symptoms in particular no chest pain or shortness of breath. He had 1 episode when came for echocardiography and was cold outside and when he walked back to the car he has some dyspnea but nothing persistent. His blood pressure was elevated on last visit and lisinopril 5 mg was added to his regimen which was increased to 10 mg with good blood pressure control. Today he returns after echocardiography. His ECHO is showing EF of 44% by biplane method. Visually it looks similar to before and is approximately 40- 45% EF. Again he has no symptoms on follow-up. He is denying chest discomfort shortness of breath. Taking medications regularly blood pressure control is better. 02/22/23: He returns for follow-up. He had echocardiography in October 2021 when he was noticed to have EF of 45-50% with indeterminate filling pressures and reduced global longitudinal strain. Normal right ventricular cavity size and function. Mechanical prosthetic aortic valve and a mean gradient of 11 mm Hg and mild aortic valve regurgitation was noticed. He is denying any chest discomfort. He gets out of breath when he is really pushing himself or going up stairs. No significant changes in symptomatology. He said he rushed into to the clinic as he was getting late and blood pressure is mildly elevated. Overall he has been doing well. 05/26/2024: He is here for follow-up. He has some dyspnea while going upstairs. He has no chest discomfort. He has echocardiography has shown EF of 35-40%. Was started on Entresto which he has been taking regularly. He is on Coumadin for mechanical aortic valve. 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 Review of Systems Const Denies chills, Denies fatigue, Denies fever(s), Denies frequent falls, Denies weakness, Denies weight gain and Denies weight loss ENT Denies dizziness Card Denies chest pain, Denies leg edema, Denies lightheadedness, Denies palpitations, Denies dyspnea and Denies dyspnea on exertion Resp Denies cough, Denies dyspnea and Denies dyspnea on exertion GI Denies hematochezia Musc Denies abnormal gait, Denies muscle weakness, Denies numbness, Denies radiating pain into limb and Denies tingling Neuro Denies abnormal gait, Denies dizziness, Denies frequent falls, Denies numbness, Denies tingling and Denies weakness Endo Denies fatigue and Denies palpitations Physical Exam Vital Signs: Last Vital Signs Pulse 80 05/26/24 13:29 BP 130/62 05/26/24 13:29 BMI result Body Mass Index 28.4 GENERAL APPEARANCE: in no acute distress, well developed, well nourished. NECK/THYROID: no carotid bruit, no jugular venous distention. SKIN: Xanthelasma under right eye. HEART: Systolic murmur in the aortic area, mechanical 2nd heart sound. LUNGS: clear to auscultation bilaterally. ABDOMEN: normal, bowel sounds present, soft, nontender, nondistended. EXTREMITIES: no clubbing, cyanosis, or edema. PERIPHERAL PULSES: equal. NEUROLOGIC: nonfocal, alert and oriented. PSYCH: mood/affect full range. Assessment & Plan Assessment & Plan (1) Cardiomyopathy: Code(s): I42.9 - Cardiomyopathy, unspecified Category: Medical Qualifiers: Cardiomyopathy type: unspecified Qualified Code(s): I42.9 - Cardiomyopathy, unspecified (2) S/P AVR: Comment: Mechanical valve. On Coumadin. Aspirin has been stopped because of previous GI bleed and recent nosebleed. Code(s): Z95.2 - Presence of prosthetic heart valve Category: Surgical Plan Pleasant 73 year gentleman who has previous mechanical aortic valve replacement and had mild cardiomyopathy with EF 40 45%. He is presenting for follow-up. He had echocardiography in 11/17/2023 which showed EF of 35-40%. He was started on Entresto after that. He has some dyspnea with activity especially when he goes upstairs. Adding spironolactone 25 mg daily. We will arrange a diagnostic catheterization for him to rule out any obstructive coronary disease. He will see us back after cardiac catheterization. Thank you for allowing me to participate in the care of your patient. Please feel free to contact me if you have any questions. Orders: Orders Prothrombin Time INR Today I42.9 - Cardiomyopathy, unspecified Cardiac Cath LT Diagnostic Today I42.9 - Cardiomyopathy, unspecified Basic Metabolic Panel Today I42.9 - Cardiomyopathy, unspecified Complete Blood Count no Diff Today I42.9 - Cardiomyopathy, unspecified Medications: New spironolactone 25 mg PO DAILY 60 tabs 3RF Coding Level of Care Code Est Pt Level 4 (88288) Diagnoses Cardiomyopathy, unspecified type I42.9 Cardiomyopathy type: unspecified S/P AVR Z95.2
== END 2024-05-26 14:16 | disposition home or self-care (01) ==
LOC: HO.HCS 13:26
PROVIDERS: PCP Family Medicine; Visit Provider Internal Medicine Cardiovascular Disease
DX: I42.9 Cardiomyopathy, unspecified (principal); Z95.2 Presence of prosthetic heart valve
CPT/HCPCS: 99214

== ENCOUNTER → 2024-05-26 13:25 | Outpatient (BNVA) | payer OTHER, SELFPAY | PROVIDERS: PCP Family Medicine; Visit Provider Internal Medicine Cardiovascular Disease ==

== ENCOUNTER 2024-07-01 06:28 | Outpatient (REF) | payer OTHER, SELFPAY ==
[2024-07-01 11:19] LABS: Hematocrit 43.1 % (42.0-52.0); Hemoglobin 14.7 g/dl (14.0-18.0); Mean Corpuscular HGB Conc 34.1 g/dl (31.0-36.0); Mean Corpuscular Hemoglobin 32.6 pg (27.0-33.0); Mean Corpuscular Volume 95.6 fL (80.0-98.0); Mean Platelet Volume 10.8 fL (9.4-12.4); Platelet Count 157 X10*3/uL (160-400); Red Blood Count 4.51 X10*6/uL (4.60-5.80); Red Cell Distribution Width 12.7 % (11.0-16.0); White Blood Count 5.6 X10*3/uL (4.8-10.8)
[2024-07-01 11:27] LABS: INTERNATIONAL NORM RATIO 3.5 (0.9-1.1)
[2024-07-01 11:54] LABS: Anion Gap 12 (12-20); Blood Urea Nitrogen 14 mg/dL (9-16); Calcium 9.2 mg/dL (8.4-10.2); Carbon Dioxide 26 mmol/L (22-29); Chloride 106 mmol/L (96-108); Estimated Glomerular Filt Rate 52; Glucose Random 114 mg/dL (60-115); Potassium 3.9 mmol/L (3.3-5.1); Sodium 140 mmol/L (135-145)
== END 2024-07-01 06:29 | disposition home or self-care (01) ==
LOC: HO.HMGCLDS 06:28
PROVIDERS: PCP Family Medicine; Visit Provider Internal Medicine Cardiovascular Disease
DX: I42.9 Cardiomyopathy, unspecified (principal)
CPT/HCPCS: 36415; 80048; 85027; 85610

== ENCOUNTER → 2024-07-10 23:59 | Outpatient (BNV) | payer OTHER, SELFPAY | PROVIDERS: PCP Family Medicine; Visit Provider Internal Medicine Cardiovascular Disease | DX: I42.9 Cardiomyopathy, unspecified (principal) | CPT/HCPCS: 93454; 99152 ==

== ENCOUNTER 2024-07-28 12:47 | Outpatient (AMB) | payer OTHER, SELFPAY ==
[2024-07-28 12:55] VITALS: BP 120/64; PULSE 80; BMI 28.5
--- NOTE | 2024-07-28 12:55 | A.OFFVIS_ITS ---
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: No Accompanied by: Self / Same As Patient Allergies No Known Allergies Allergy (Verified 01/10/24 08:51) Medication List - Last Reconciled 07/28/24 by Luz Payton NP-C atorvastatin 10 mg PO DAILY celecoxib 200 mg PO BID lamotrigine 25 mg PO memantine 5 mg PO BEDTIME metoprolol succinate ER 25 mg PO DAILY omeprazole 20 mg PO BID sacubitril-valsartan 24-26 mg (Entresto) 1 tab PO BID spironolactone 25 mg PO DAILY trazodone 50 mg PO BEDTIME warfarin 2.5 mg PO BEDTIME HPI HPI * 2 wk f/up cath HS: Details: Michael is a 73-year-old male with past medical history of hypertension, hyperlipidemia, LVH, status post mechanical aortic valve replacement, cardiomyopathy who presents for follow-up after recent cardiac catheterization which showed normal coronary arteries. Today he reports that he has been doing well with no concerning symptoms. 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 He does lots of walking but not a lot of exertional type activities. If he climbs more than 2 flights of stairs he does have some fatigue and shortness of breath which he says is not new. He denies chest discomfort at rest or with activity. No shortness of breath at rest, palpitations, presyncope, syncope, PND, orthopnea or edema. No bleeding issues reported. Taking all meds as directed. 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 Review of Systems Const Denies chills, Denies fatigue, Denies fever(s), Denies frequent falls, Denies weakness, Denies weight gain and Denies weight loss ENT Denies dizziness Card Denies chest pain, Denies leg edema, Denies lightheadedness, Denies palpitations, Denies dyspnea and Denies dyspnea on exertion Resp Denies cough, Denies dyspnea and Denies dyspnea on exertion GI Denies hematochezia Musc Denies abnormal gait, Denies muscle weakness, Denies numbness, Denies radiating pain into limb and Denies tingling Neuro Denies abnormal gait, Denies dizziness, Denies frequent falls, Denies numbness, Denies tingling and Denies weakness Endo Denies fatigue and Denies palpitations Physical Exam Vital Signs: Last Vital Signs Pulse 80 07/28/24 12:55 BP 120/64 07/28/24 12:55 BMI result Body Mass Index 28.5 Const General: cooperative, healthy appearing, comfortable and no acute distress Orientation/consciousness: patient oriented x3 Neck Neck: Yes normal visual inspection and Yes no JVD Resp Effort & Inspection: normal respiratory effort Auscultation: clear to auscultation bilaterally, no crackles, no rales, no rhonchi and no wheezes Cardio Jugular venous distension: no JVD Rate: regular rate Rhythm: regular rhythm Heart sounds: S1 normal heart sound present, S2 normal heart sound present, no murmurs and no rubs Neuro General: patient oriented x3 Extrem General: Yes normal to inspection, No no pedal edema and No calf tenderness Psych Appearance: grossly normal Mental Status: mental status grossly normal Speech and movement: Normal speech and movement present Assessment & Plan Assessment & Plan (1) Cardiomyopathy: Code(s): I42.9 - Cardiomyopathy, unspecified Category: Medical Qualifiers: Cardiomyopathy type: unspecified Qualified Code(s): I42.9 - Cardiomyopathy, unspecified Plan: Mild cardiomyopathy noted on prior echoes. Recent echo shows drop in EF from 45-50 % down to 35-40%. He did undergo a nuclear stress test on 12/10/2023 showing probable normal myocardial perfusion, fixed inferior defect suspect diaphragm attenuation artifact. Home sleep study was done 02/20/2024 which showed no obstructive sleep apnea. He denies alcohol use. He did undergo a cardiac catheterization on 07/10/2024 which showed normal coronary arteries. He his cardiomyopathy is nonischemic. He has been on Entresto, metoprolol and Aldactone for neurohormonal modulation. He says in the last 2 weeks he has not been able to get Entresto since a prior authorization is needed through our office. -I will notify our nurse of the need for this. No clinical signs of heart failure on examination. Labs from 07/01/2024 shows potassium 3.9, creatinine 1.35. No med changes made at this time. Signs and symptoms of heart failure reviewed with him. Will update echo prior to his next visit. Cardiology follow-up 6 months, sooner if needed. (2) Hx of cardiac cath: Comment: 07/10/2024, normal coronary arteries Code(s): Z98.890 - Other specified postprocedural states Category: Surgical Plan: Right radial catheterization site well healed (3) Mobitz type 1 second degree atrioventricular block: Code(s): I44.1 - Atrioventricular block, second degree Category: Medical Plan: Prior EKG showing sinus rhythm with long first-degree AV block, evidence of second-degree heart block type 1, rate 61. Asymptomatic. First-degree AV block has been seen on other EKGs. Holter monitor done on 12/17/2023 for 3 days showing sinus rhythm with average heart rate 76, no significant pauses or bradycardia, evidence of Mobitz 1 rhythm. A sleep study was done showing no sleep apnea. He has not had any concerning symptoms, no dizziness, presyncope, syncope, weakness, fatigue. Pulse is in the normal range today. His metoprolol had been reduced from 25 mg b.i.d. down to XL 25 mg daily. No med changes made. Will continue to follow. (4) S/P AVR: Comment: Mechanical valve. On Coumadin. Aspirin has been stopped because of previous GI bleed and recent nosebleed. Code(s): Z95.2 - Presence of prosthetic heart valve Category: Surgical Plan: History of aortic valve replacement with a mechanical aortic valve approximately [address] Mendosa. He is on Coumadin for anticoagulation. INR goal 3. Follows with [facility] anticoagulation [facility]. No recent bleeding issues. Has had issues with GI bleeding and epistaxis in the past. Labs done on 07/01/2024 showed hematocrit 43.7. Echo done on 11/05/2023 showing EF 35-40%, normally functioning mechanical aortic valve with mean gradient 11 mmHg. [place]yenne click audible on examination. Endocarditis prophylaxis reviewed. (5) First degree AV block: Code(s): I44.0 - Atrioventricular block, first degree Category: Medical Plan: As above (6) Essential hypertension: Code(s): I10 - Essential (primary) hypertension Category: Medical Plan: As above (7) LVH (left ventricular hypertrophy): Code(s): I51.7 - Cardiomegaly Category: Medical Plan: Blood pressure normal today. Continue current meds. (8) Hyperlipidemia: Comment: Continue atorvastatin 10 mg once a day. Code(s): E78.5 - Hyperlipidemia, unspecified Category: Medical Qualifiers: Hyperlipidemia type: unspecified Qualified Code(s): E78.5 - Hyperlipidemia, unspecified Plan: LDL goal less than 100, ideally less than 70. Labs done on 01/17/2023 showed LDL 41. Continue atorvastatin 10 mg daily. He is due for an updated lipid profile Plan Time spent on chart review, documentation, interview and assessment Medications: Refilled sacubitril-valsartan 24-26 mg (Entresto) 1 tab PO BID 180 tabs 3RF Coding Level of Care Code Est Pt Level 4 (82276) Complex EM visit Add On G2211 Diagnoses Cardiomyopathy, unspecified type I42.9 Cardiomyopathy type: unspecified Hx of cardiac cath Z98.890 Mobitz type 1 second degree atrioventricular block I44.1 S/P AVR Z95.2 First degree AV block I44.0 Essential hypertension I10 LVH (left ventricular hypertrophy) I51.7 Hyperlipidemia, unspecified hyperlipidemia type E78.5 Hyperlipidemia type: unspecified Time Spent (min) 28
== END 2024-07-28 13:14 | disposition home or self-care (01) ==
PROVIDERS: PCP Family Medicine; Visit Provider Nurse Practitioner Family
DX: I42.9 Cardiomyopathy, unspecified (principal); Z98.890 Other specified postprocedural states; I44.1 Atrioventricular block, second degree; Z95.2 Presence of prosthetic heart valve; I44.0 Atrioventricular block, first degree; I10 Essential (primary) hypertension; I51.7 Cardiomegaly; E78.5 Hyperlipidemia, unspecified
CPT/HCPCS: 99214

== ENCOUNTER → 2024-07-28 12:47 | Outpatient (BNVA) | payer OTHER, SELFPAY | PROVIDERS: PCP Family Medicine; Visit Provider Nurse Practitioner Family ==

== ENCOUNTER → 2024-12-19 07:48 | Outpatient (REF) | payer OTHER, SELFPAY ==
--- OUTSIDE RECORDS SUMMARY | 2024-12-19 07:49 | XMS_ITS | Patient Health Record ---
Author Organization [facility] Address [address] [place] [address] Care Team Providers Care Damascener Name Role Phone Chad Rogers MD Primary Care Provider Unavailab Damian Wilson Unavailable [phone] Reason For Referral No Information Medications Medication SIG (Take, Route, Frequency, Duration) Notes Start Date End Date Status Atorvastatin Calcium 10 MG 1 tablet Oral ly Once a day for 30 day(s) Active lamoTRIgine 25 MG 2 tablets Orally Twi ce a day Active Warfarin Sodium 2 MG as directed Orally Once a day Active Omeprazole 20 MG 1 capsule Orally twi ce a day Active Metoprolol Tartrate 25 MG 1 tablet with food Orally Twice a day for 30 day(s) Active Memantine HCl 5 MG 1 tablet Orally Once a day for 30 day(s) Active traZODone HCl 50 MG 1 tablet at bedtime as needed Orally Once a day Active Immunizations Vaccine Route Administration Date Status Comme nts Influenza Unknown 05/15/2018 Administered Social History Tobacco Use: Social History Observation Description Date Details (start date - stop date) Former Smoker NA - NA Tobacco Use/Smoking Question Answer Notes Patient is a former smoker How long has it been since you last smoked? > 10 years Alcohol Screen Question Answer Notes Did you have a drink containing alcohol in the p ast year? No Points 0 Interpretation Negative Section Notes: Nonsmoker > 10 yrs, no alcoh ol Problems Problem Type SNOMED Code ICD Code Onset Dates Problem Status W/U Status Risk Notes Problem 643705606 Encounter for screening for malignant neoplasm of colon (Z12.11) Active confirmed Problem 807310111 Gastroesophageal reflux disease, esophagitis presence not specified (K21.9) Active confirmed Problem 670086388 Hx of adenomatou s colonic polyps (Z86.010) Active confirmed Plan Of Treatment Future Test Test Name Order Date UPPER GI ENDOSCOPY 01/02/2019 COLONOSCOPY 01/02/2019 Insurance Providers Payer Name Payer Address Payer Phone Subscriber Number Group Number Insured Name Patient Relationship to Insured Coverage Start Date Coverage End Date [facility] [address] [facility] [place] [phone] [id number] CORA SANCHEZ Self - patient is the insured Medical (General) History Medical History History ICD Code Denies [place],DM,CVA,Lung disease,renal dise ase Hypertension Colonoscopy 2003-- small tubular adeno ma removed GERD Memory issues as a result of the cardiac surgery Hyperlipidemia Surgical History Surgery Date(Month/Year) Prosthetic aortic valve replacement 2008
--- NOTE | 2024-12-19 07:50 | CA_ITS ---
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 There is normal left ventricular wall thickness. The left ventricular systolic function is mild to moderately decreased. The visually estimated ejection fraction is between 35-40%. - Mildly increased right ventricular cavity size. There is mildly decreased right ventricular systolic function. - Normal functioning mechanical aortic valve. Findings Left Ventricle Normal left ventricular cavity size. There is normal left ventricular wall thickness. The left ventricular systolic function is mild to moderately decreased. The visually estimated ejection fraction is between 35-40%. There is no evidence of regional wall motion abnormalities. Diastolic function is indeterminate on the basis of available data. Right Ventricle Mildly increased right ventricular cavity size. There is mildly decreased right ventricular systolic function. Atria The left atrium is mildly dilated. The right atrium is normal in size. Aortic Valve There is trace (trivial) aortic valve regurgitation. Normal functioning mechanical aortic valve. Mitral Valve Normal mitral valve structure and function. There is trace mitral valve regurgitation. There is no mitral valve stenosis. Pulmonic Valve The pulmonic valve is likely normal. Tricuspid Valve Normal tricuspid valve structure. There is trace tricuspid valve regurgitation. Normal right atrial pressure. There is no evidence of pulmonary hypertension. Great Vessels All visible segments of the aorta are normal in size. The visualized portions of the pulmonary artery and branches are normal. Venous The inferior vena cava is normal in size and collapses greater than 50% with inspiration. Pericardium/Pleural There is no evidence of pericardial effusion. Prior Study Comparison No significant change compared to prior study dated: 11/05/2023. Measurements 2D Linear Measurements IVSd: 1.11 0.6-0.9/0.6-1.0 cm LVIDd: 5.21 3.9-5.3/4.2-5.9 cm LVIDd Index: 3.01 2.4-3.2/2.2-3.1 cm/m2 LVIDs: 4.05 2.0-3.6 cm LVPWd: 0.84 0.7-1.1 cm LA Diam: 3.70 2.7-3.8/3.0-4.0 cm LAIDs Index: 2.14 1.5-2.3 cm/m2 LV Mass: 234.03 67-162/88-224 g LV Mass Index: 135.28 43-95/49-115 g/m2 LVOT Diam: 2.10 3.0+(-)1.3 cm 2D Systolic Function EF 4C: 40.20 >55% EF 2C: 39.10 >55% EF BiP: 39.60 >55% Mitral Valve E'Lateral: 6.20 E'Medial: 3.26 Aortic Valve AoV Pk Magdy: 2.15 AoV Mn Magdy: 1.50 AoV VTI: 0.36 AoV Pk Grad: 18.00 Aov Mn Grad: 10.00 FLORESITA Cont.VTI: 1.19 LVOT LVOT Pk Magdy: 0.69 LVOT Mn Magdy: 0.44 LVOT VTI: 0.12 LVOT Pk Grad: 2.00 LVOT Mn Grad: 1.00 LVOT Diam: 2.10 LVOT Area: 3.46 Diastolic Function E'Medial: 3.26 E' Laterial: 6.20 Right Ventricle TAPSE (mm): 6.10 TVS' Magdy: 6.90 Tricuspid Valve TR Pk Magdy: 1.87 TR Pk Grad: 14.00 RA Press: 3.00 RVSP: 17.00 Great Vessels Aorta Ao Asc: 3.50 2.1-3.4 cm Pulmonary Valve [place] Pk Magdy: 1.82 Updated in Other Vendor System with Status of Final Greg Tejeda MD electronically signed on 12/22/2024 11:29:41 PM with status of Final
== END ==
LOC: HO.CARD 07:48
PROVIDERS: PCP Family Medicine; Visit Provider Nurse Practitioner Family
DX: I42.9 Cardiomyopathy, unspecified (principal); Z95.2 Presence of prosthetic heart valve
CPT/HCPCS: 93306

== ENCOUNTER → 2024-12-19 07:50 | Outpatient (BNV) | payer OTHER, SELFPAY | PROVIDERS: PCP Family Medicine; Visit Provider Internal Medicine Cardiovascular Disease | DX: I42.8 Other cardiomyopathies (principal); Z95.2 Presence of prosthetic heart valve | CPT/HCPCS: 93306 ==

== ENCOUNTER 2025-01-15 09:26 | Outpatient (REF) | payer OTHER, SELFPAY ==
--- OUTSIDE RECORDS SUMMARY | 2025-01-15 10:11 | XMS_ITS | Patient Health Record ---
Author Organization [facility] Address [address] [place] [address] Care Team Providers Care Rn Care Manager Name Role Phone Chad Rogers MD Primary Care Provider Unavailab Damian Wilson Unavailable [phone] Reason For Referral No Information Medications Medication [...] Problem Status W/U Status Risk Notes Problem [id number] Encounter for screening for malignant neoplasm of colon (Z12.11) Active confirmed Problem 702518681 Gastroesophageal reflux disease, esophagitis presence not specified (K21.9) Active confirmed Problem 184399278 Hx of adenomatou s colonic polyps (Z86.010) Active confirmed Plan Of Treatment Future Test Test Name Order Date UPPER GI ENDOSCOPY 01/02/2019 COLONOSCOPY 01/02/2019 Insurance Providers Payer Name Payer Address Payer Phone Subscriber Number Group Number Insured Name Patient Relationship to Insured Coverage Start Date Coverage End Date [facility] [address] [facility] [place] [phone] [id number] CORA SANCHEZ Self - patient is the insured Medical (General) History Medical History History ICD Code Denies [place],DM,CVA,Lung disease,renal dise ase Hypertension Colonoscopy 2003-- small tubular adeno ma removed GERD Memory issues as a result of the cardiac surgery Hyperlipidemia Surgical History Surgery Date(Month/Year) Prosthetic aortic valve replacement 2008
[2025-01-15 11:34] LABS: Alanine Aminotransferase 50 U/L (0-40); Anion Gap 10 (12-20); Aspartate Amino Transferase 33 U/L (5-37); Blood Urea Nitrogen 15 mg/dL (9-16); Carbon Dioxide 28 mmol/L (22-29); Chloride 107 mmol/L (96-108); Estimated Glomerular Filt Rate 55; Potassium 4.7 mmol/L (3.3-5.1); Sodium 140 mmol/L (135-145)
[2025-01-20 02:09] LABS: Lamotrigine Lamictal 4.2 mcg/mL (2.5-15.0)
== END 2025-01-15 09:27 | disposition home or self-care (01) ==
LOC: HO.10HDL 09:26
PROVIDERS: Referring Provider Internal Medicine Cardiovascular Disease; Visit Provider Family Medicine
DX: I10 Essential (primary) hypertension (principal); E78.00 Pure hypercholesterolemia, unspecified; Z79.02 Long term (current) use of antithrombotics/antiplatelets
CPT/HCPCS: 36415; 80051; 80175; 82550; 82565; 84450; 84460; 84520

== ENCOUNTER 2025-01-21 09:02 | Outpatient (AMB) | payer OTHER, SELFPAY ==
--- NOTE | 2025-01-21 09:19 | A.OFFVIS_ITS ---
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 Required: No Accompanied by: Self / Same As Patient Allergies No Known Allergies Allergy (Verified 01/10/24 08:51) Medication List - Last Reconciled 01/21/25 by Greg Tejeda MD atorvastatin 10 mg PO DAILY celecoxib 200 mg PO BID lamotrigine 25 mg PO memantine 5 mg PO BEDTIME metoprolol succinate ER 25 mg PO DAILY omeprazole 20 mg PO BID sacubitril-valsartan 24-26 mg (Entresto) 1 tab PO BID spironolactone 25 mg PO DAILY trazodone 50 mg PO BEDTIME warfarin 2.5 mg PO BEDTIME HPI Comments Details: [age] gentleman with background history of mechanical aortic valve replacement currently on Coumadin and nonischemic cardiomyopathy with EF 35-40%. Cardiac catheterization June 2024 showing no significant coronary artery disease. He is on guideline directed medical therapy with Entresto, spironolactone and Toprol-XL. Echocardiography in November 2024 showing EF 35-40% without any regional wall motion abnormalities. Normal functioning mechanical aortic valve was noted. He has been stable. No orthopnea or PND. 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 He is saying when he is walking outside he gets some dyspnea. He does stairs at work at his own pace and does okay. 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 Review of Systems Const Denies chills, Denies fatigue, Denies fever(s), Denies frequent falls, Denies weakness, Denies weight gain and Denies weight loss ENT Denies dizziness Card Denies chest pain, Denies leg edema, Denies lightheadedness, Denies palpitations, Denies dyspnea and Denies dyspnea on exertion Resp Denies cough, Denies dyspnea and Denies dyspnea on exertion GI Denies hematochezia Musc Denies abnormal gait, Denies muscle weakness, Denies numbness, Denies radiating pain into limb and Denies tingling Neuro Denies abnormal gait, Denies dizziness, Denies frequent falls, Denies numbness, Denies tingling and Denies weakness Endo Denies fatigue and Denies palpitations Physical Exam Vital Signs: Last Vital Signs Pulse 75 01/21/25 09:20 BP 120/66 01/21/25 09:20 BMI result Body Mass Index 28.3 GENERAL APPEARANCE: in no acute distress, well developed, well nourished. NECK/THYROID: no carotid bruit, no jugular venous distention. SKIN: Xanthelasma under right eye. HEART: Systolic murmur in the aortic area, mechanical 2nd heart sound. LUNGS: clear to auscultation bilaterally. ABDOMEN: normal, bowel sounds present, soft, nontender, nondistended. EXTREMITIES: no clubbing, cyanosis, or edema. PERIPHERAL PULSES: equal. NEUROLOGIC: nonfocal, alert and oriented. PSYCH: mood/affect full range. Office Procedures EKG Details: Sinus rhythm 75 beats per minute, first-degree AV block with IL interval 300 mil liseconds. Left ventricular hypertrophy with QRS widening and repolarization changes, leftward axis, QTC 473 milliseconds. [id number], Complete Assessment & Plan Assessment & Plan (1) Essential hypertension: Code(s): I10 - Essential (primary) hypertension Category: Medical (2) Cardiomyopathy: Code(s): I42.9 - Cardiomyopathy, unspecified Category: Medical Qualifiers: Cardiomyopathy type: unspecified Qualified Code(s): I42.9 - Cardiomyop athy, unspecified (3) S/P AVR: Comment: Mechanical valve. On Coumadin. Aspirin has been stopped because of previous GI bleed and recent nosebleed. Code(s): Z95.2 - Presence of prosthetic heart valve Category: Medical Plan Pleasant 74 year gentleman who has history of mechanical aortic valve replacement on chronic Coumadin therapy as well as nonischemic cardiomyopathy with EF 35-40% by recent echocardiography. Blood pressure is well controlled currently. He is on Entresto, spironolactone and Toprol-XL. Adding Jardiance 10 mg daily. He is saying that Entresto was expensive and he will check with pharmacy whether Jardiance is something he can afford. If he can not afford it fci then he will not start the medicine and will let us know. Echocardiography November 2024 has shown EF 35-40%. We will repeat the testing in 6 months. Thank you for allowing me to participate in the care of your patient. Please feel free to contact me if you have any questions. Medications: New empagliflozin (Jardiance) 10 mg PO DAILY 30 tabs 0RF I42.9 - Cardiomyopathy, unspecified Coding Level of Care Code Est Pt Level 4 (24868) Diagnoses Essential hypertension I10 Cardiomyopathy, unspecified type I42.9 Cardiomyopathy type: unspecified S/P AVR Z95.2 CPT Codes EKG - CPT: 22340-Oryvxpnlksuaaocil, Complete ([id number])
[2025-01-21 09:20] VITALS: BP 120/66; PULSE 75; BMI 28.3
--- OUTSIDE RECORDS SUMMARY | 2025-01-21 09:45 | XMS_ITS | Patient Health Record ---
Author Organization [facility] Address [address] [place] [address] Care Team Providers Care Division Service Manager Name Role Phone Chad Rogers MD Primary Care Provider Unavailab Damian Wilson Unavailable [phone] Reason For Referral No Information Medications Medication [...] Problem Status W/U Status Risk Notes Problem 819657973 Encounter for screening for malignant neoplasm of colon (Z12.11) Active confirmed Problem 152883488 Gastroesophageal reflux disease, esophagitis presence not specified (K21.9) Active confirmed Problem 282845901 Hx of adenomatou s colonic polyps (Z86.010) Active confirmed Plan Of Treatment Future Test Test Name Order Date UPPER GI ENDOSCOPY 01/02/2019 COLONOSCOPY 01/02/2019 Insurance Providers Payer Name Payer Address Payer Phone Subscriber Number Group Number Insured Name Patient Relationship to Insured Coverage Start Date Coverage End Date [facility] [address] [facility] [place] [phone] [id number] CORA SANCHEZ Self - patient is the insured Medical (General) History Medical History History ICD Code Denies [place],DM,CVA,Lung disease,renal dise ase Hypertension Colonoscopy 2003-- small tubular adeno ma removed GERD Memory issues as a result of the cardiac surgery Hyperlipidemia Surgical History Surgery Date(Month/Year) Prosthetic aortic valve replacement 2008
== END 2025-01-21 09:41 | disposition home or self-care (01) ==
LOC: HO.HCS 09:03
PROVIDERS: PCP Family Medicine; Visit Provider Internal Medicine Cardiovascular Disease
DX: I10 Essential (primary) hypertension (principal); I42.9 Cardiomyopathy, unspecified; Z95.2 Presence of prosthetic heart valve
CPT/HCPCS: 93010; 99214

== ENCOUNTER → 2025-01-21 09:02 | Outpatient (BNVA) | payer OTHER, SELFPAY | PROVIDERS: PCP Family Medicine; Visit Provider Internal Medicine Cardiovascular Disease | DX: I10 Essential (primary) hypertension (principal) | CPT/HCPCS: 93005 ==

== ENCOUNTER 2025-04-22 09:44 | Outpatient (AMB) | payer OTHER, SELFPAY ==
[2025-04-22 09:20] VITALS: BP 124/76; PULSE 63; TEMP 36.2; O2SAT 96; BMI 28.0
--- NOTE | 2025-04-22 09:20 | MHC.PC.OV ---
Vital Signs 04/22/25 09:20 Height 5 ft 4 in Weight 163 lb BMI 28.0 BP 124/76 Blood Pressure Location Rt brachial Position Sitting Pulse 63 Pulse Source Pulse Oximeter Temp 97.1 F Temp Source Temporal Artery Scan Pulse Oximetry (%) 96 Oxygen Delivery Method Room Air Intake Visit Reasons: 3 MO F/UP - DINO PT - ROSSY HENDRICKS Pharmacy Laboratory Technician Required: No Accompanied by: Self / Same As Patient Allergies No Known Allergies Allergy (Verified 04/22/25 09:52) Medication List - Last Reconciled 04/22/25 by Italo Hendricks MD atorvastatin 10 mg PO DAILY empagliflozin (Jardiance) 10 mg PO DAILY Held on 04/22/25. Instructions: Dizziness lamotrigine 25 mg PO memantine 5 mg PO BEDTIME metoprolol succinate ER 25 mg PO DAILY nortriptyline 25 mg PO QAM omeprazole 20 mg PO BID sacubitril-valsartan 24-26 mg (Entresto) 1 tab PO BID spironolactone 25 mg PO DAILY trazodone 50 mg PO BEDTIME warfarin 2.5 mg PO BEDTIME Tobacco use date assessed: 04/22/25 Fall risk assessment: No Falls in past year Last assessed Fall Risk: 04/22/25 Dental Screening Dental Screen Date: 04/22/25 Did you have a dental visit in the last 12 months?: No Did you have a dental problem in the last 6 months where you did not have access to dental care?: No HPI HPI Comments History of Present Illness Details The patient is a 74-year-old male presenting with issues related to orthostatic dizziness and difficulty rising from a bent position. He reports experiencing dizziness and facial flushing when standing up too quickly, necessitating a cautious approach to avoid syncope. The patient has a history of heart failure with reduced ejection fraction, with a previous aortic valve replacement many years ago. He takes multiple medications for heart failure management, including Entresto, spironolactone, and metoprolol succinate. He is experiencing difficulties with medication management, particularly noting dizziness when taking Jardiance, which he has since discontinued without any subsequent recurrence of symptoms. He denies any recent loss of consciousness, shortness of breath, chest pain, nausea, vomiting, or headaches. He reports his overall health status as stable apart from the described dizziness, attributing some decreased physical capabilities to aging. Medical History: - Heart failure with reduced ejection fraction (35-40% ejection fraction) - Status post aortic valve replacement (mechanical valve) - Gastroesophageal reflux disease - Long-term warfarin therapy - Major depressive disorder, in remission Surgical History: - Aortic valve replacement (mechanical valve) Medications: - Warfarin, dose adjusted by [facility], for blood thinning post-valve replacement - Spironolactone 25 mg at night for heart failure management - Entresto, twice daily for heart failure - Trazodone at night for sleep - Omeprazole twice daily for GERD - Metoprolol succinate 25 mg once a day for heart failure and hypertension management - Lamotrigine, for mood stabilization - Atorvastatin 10 mg at night for cholesterol management - Amitriptyline, for mood stabilization Family History: - Mother had breast cancer - Brother had similar heart surgery (valve replacement), Social: - Former smoker, quit after heart surgery 12 years ago, smoked for about eight years - Denies alcohol and recreational drug use - 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 Father No problems noted. 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 1. Little interest or pleasure in doing things: not at all 2. Feeling down, depressed, or hopeless: not at all 3. Trouble falling or staying asleep, or sleeping too much: not at all 4. Feeling tired or having little energy: not at all 5. Poor appetite or overeating: not at all 6. Feeling bad about yourself - or that you are a failure or have let yourself or your family down: not at all 7. Trouble concentrating on things, such as reading the newspaper or watching television: not at all 8. Moving or speaking so slowly that other people could have noticed. Or the opposite - being so fidgety or restless that you have been moving around a lot more than usual: not at all 9. Thoughts that you would be better off or of hurting yourself in some way: not at all Total score: 0 Depression Screening Interpretation: Negative Depression Screening Done: Yes 65407 - PHQ-9 Billing: Yes Source: Developed by Drs. Damian Hood, Sharonda Nuno, Shay Sarmiento and colleagues, with an educational christy from [employer]. Thrive Questionnaire Date Thrive assessed: 04/22/25 I am a: Patient What is your living situation today?: I have a steady place to live Within the past 12 months, did the food you bought not last and you didn't have the money to get more?: Never true Within the past 12 months, did you worry whether your food would run out before you got money to buy more?: Never true Do you have trouble paying for medicines?: No Do you have trouble getting transportation to medical appointments?: No Do you have trouble paying your heating and electricity bill?: No Do you have trouble taking care of your child, family member or friend?: No Do you have trouble with day-to-day activities such as bathing, preparing meals, shopping, managing finances, etc.?: No Are you currently unemployed and looking for a job?: No Are you interested in more education?: No THRIVE Score: 0 AUDIT C Alcohol Use Questionnaire (AUDIT-C) 1. How often do you have a drink containing alcohol?: Never 3. How often do you have six or more drinks on one occasion?: Never Total Score: 0 Score Reviewed/Action Taken: Yes FRANCY-7 AMB Questionnaire FRANCY-7 Date FRANCY - 7 assessed: 04/22/25 Feeling nervous, anxious, or on edge: 0 = Not at all Not being able to stop or control worryin = Not at all Worrying too much about different things: 0 = Not at all Trouble relaxin = Not at all Being so restless that it is hard to sit still: 0 = Not at all Becoming easily annoyed or irritable: 0 = Not at all Feeling afraid as if something awful might happen: 0 = Not at all Total FRANCY-7 score (0-4 normal; 5-9 mild; 10-14 moderate; 15-21 severe): 0 Source: Developed by Drs. Damian Hood, Sharonda Nuno, Shay Sarmiento and colleagues, with an educational christy from [employer]. FRANCY-7 Assessment Billing FRANCY-7 Assessment Tool: FRANCY-7 Assessment 64320 Review of Systems Const Details: - Cardiovascular: Reports dizziness upon standing - Neurological: Denies headaches, loss of consciousness, weakness - Gastrointestinal: Denies nausea, vomiting, changes in bowel habits - Respiratory: Denies shortness of breath on exertion, except noted dizziness previously associated with Jardiance - Psychiatric: Denies current depression or anxiety All systems reviewed & are unremarkable except as reviewed in HPI and above Physical exam (Primary Care) Vital Signs: Last Vital Signs Temp 97.1 F 04/22/25 09:20 Pulse 63 04/22/25 09:20 BP 124/76 04/22/25 09:20 Pulse Ox 96 04/22/25 09:20 Oxygen Delivery Method Room Air 04/22/25 09:20 BMI result Body Mass Index 28.0 Tobacco/Smoking Status: Tobacco use Status Tobacco use date assessed 04/22/25 04/22/25 09:22 Patient Tobacco Use Status Former Tobacco user 04/22/25 09:22 e-Cigarette/Vaping Use Former Use 04/22/25 09:57 PHQ-9: PHQ-9 Score PHQ-9: Total score 0 04/22/25 10:05 Depression Screening Interpretation: Negative Thrive Assessment: Date of Thrive Assessment Date Thrive assessed 04/22/25 04/22/25 09:22 Const Other: General: Alert and oriented, Well nourished, No acute distress. Eye: Pupils are equal, round and reactive to light, Intact accommodation, Extraocular movements are intact, Normal conjunctiva, Vision unchanged. HENT: Normocephalic, Atraumatic, Tympanic membranes are clear, Normal hearing, Oral mucosa is moist, No pharyngeal erythema, Ear canals patent. Respiratory: Lungs CTA bilaterally, No wheeze, Respirations are non-labored. Cardiovascular: Regular rate, Regular rhythm, S1 auscultated, S2 auscultated, No murmur, Good pulses equal in all extremities, Normal peripheral perfusion, No edema. Gastrointestinal: Soft, Non-tender, Non-distended, Normal bowel sounds, No organomegaly. Musculoskeletal: Normal range of motion, Normal strength, No tenderness, No swelling, No deformity, Normal gait. Integumentary: Warm, Dry, [place], Intact. Neurologic: Alert, Oriented, Normal sensory, Normal motor function, No focal defects, Cranial Nerves II-XII are grossly intact, Normal deep tendon reflexes. Psychiatric: Cooperative, Appropriate mood & affect, Normal judgment. Coding Level of Care Code New Pt Level 4 (21333) Complex EM visit Add On G2211 Diagnoses S/P AVR Z95.2 Essential hypertension I10 Hyperlipidemia, unspecified hyperlipidemia type E78.5 Hyperlipidemia type: unspecified Heart failure with reduced ejection fraction I50.20 Bipolar 1 disorder F31.9 Orthostatic dizziness R42 Additional Codes PHQ-9 - 60671 - PHQ-9 Billing: Yes ([id number]) FRANCY-7 Assessment Billing - FRANCY-7 Assessment Tool: FRANCY-7 Assessment 12215 ([id number]) Assessment & Plan Assessment & Plan (1) S/P AVR: Comment: - Aortic Valve Replacement in 2012 - Been on Coumadin since and follows with [facility] - Not on Aspirin due to GI Bleeds & Nosebleeds Code(s): Z95.2 - Presence of prosthetic heart valve Category: Surgical (2) Essential hypertension: Comment: Home medications: Metoprolol succinate 25 mg daily, Entresto 2426 mg b.i.d., spironolactone 25 mg daily -pressure is well controlled and we will continue the same regimen and increase as required Code(s): I10 - Essential (primary) hypertension Category: Medical (3) Hyperlipidemia: Comment: Continue atorvastatin 10 mg once a day. Code(s): E78.5 - Hyperlipidemia, unspecified Category: Medical Qualifiers: Hyperlipidemia type: unspecified Qualified Code(s): E78.5 - Hyperlipidemia, unspecified (4) Heart failure with reduced ejection fraction: Comment: - Continue current heart failure management with Entresto, spironolactone, and metoprolol succinate. - ECHO Reviewed: EF 35 to 40% - Monitor ejection fraction and manage symptoms conservatively. - Hold Jardiance due to dizziness and hypotension; advised to inform wet primer powder blender. Code(s): I50.20 - Unspecified systolic (congestive) heart failure Category: Medical (5) Bipolar 1 disorder: Comment: Reports an episode where he had suicidal thoughts and was subsequently placed on trazodone, nortriptyline and lamotrigine over 15 years ago and is not sure as to why he was placed on medications. Denies any depression or anxiety at this time however given the duration of medication use and unclear indication we will refer to Psychiatry in assistance to help with discontinuation of the medications are weaning off Code(s): F31.9 - Bipolar disorder, unspecified Category: Medical (6) Orthostatic dizziness: Comment: - Advise patient on postural changes to avoid symptoms. - Ensure blood pressure medications are well-controlled and stable. - Regular follow-up for symptom management and any potential adjustment of therapy. Code(s): R42 - Dizziness and giddiness Category: Medical Plan: Health maintenance: - Blood pressure management with regular monitoring - Continuation of chronic disease management, including heart failure and GERD - Screening for colon cancer due; prior colonoscopy had complications - Psychiatric evaluation recommended to review long-term psychiatric management Patient was informed and verbally consented to the use of an ambient scribe for clinic note documentation during this visit. Plan During the visit, I discussed the patient's history of heart failure and past valve replacement surgery. The patient is experiencing orthostatic dizziness which I advised managing with slow positional changes. His medication regimen includes various drugs for heart failure which are working well, except for Jardiance, which caused dizziness and has been discontinued. We discussed the ongoing necessity of warfarin therapy due to his mechanical valve replacement. GERD is managed effectively with omeprazole. I proposed a psychiatric consultation for possible medication review given his history of depression. We agreed on a follow-up interval of four months unless symptoms change. Orders: Orders Complete Blood Count Auto Diff Today Z76.89 - Persons encountering health services in other specified circumstances Comprehensive Met. Panel Today Z76.89 - Persons encountering health services in other specified circumstances Hemoglobin A1c Today Z76.89 - Persons encountering health services in other specified circumstances Lipid Panel Today Z76.89 - Persons encountering health services in other specified circumstances TSH reflex Free T4 Today Z76.89 - Persons encountering health services in other specified circumstances Vitamin D 25-OH Total Today Z76.89 - Persons encountering health services in other specified circumstances Referrals Psychiatry Referral F31.9 - Bipolar disorder, unspecified Medications: On Hold empagliflozin (Jardiance) Hold Comment: Dizziness 10 mg PO DAILY 30 tabs 0RF I42.9 - Cardiomyopathy, unspecified Patient Instructions: - Change positions slowly to minimize dizziness. - Continue current medications as prescribed and managed. - Follow-up with wet primer powder blender regarding heart function monitoring. - Notify the wet primer powder blender about the cessation of Jardiance. - Schedule colonoscopy as recommended. - Discuss psychiatric medications with psychiatric services. - Return for follow-up in four months or sooner if new symptoms develop.
--- OUTSIDE RECORDS SUMMARY | 2025-04-22 11:49 | XMS_ITS | Patient Health Record ---
Author Organization [facility] Address [address] [place] [address] Care Team Providers Care Power Tool Repairer Name Role Phone Chad Rogers MD Primary Care Provider Dimitris Erickson Unavailable [phone] Allergies No Known Allergies Reason For Referral No Information Medications Medication SIG (Take, Route, Frequency, Duration) Notes Start Date End Date Status Lisinopril 10 MG 1 tablet Orally Once a day; Duration: 30 day(s) Active Metoprolol Succinate 25 MG 1 capsule Ora lly Once a day; Duration: 30 day(s) Active lamoTRIgine 25 MG 1 tablet Orally; Duration: 30 day(s) Active Memantine HCl 5 MG 1 tablet Orally Once a day; Duration: 30 day(s) Active traZODone HCl 50 MG 1 tablet at bedtime as needed Orally Once a day; Duration: 30 day(s) Active Atorvastatin Calcium 10 MG 1 tablet Oral ly Once a day; Duration: 30 day(s) Active Warfarin Sodium 5 MG 1 tablet Orally Onc e a day; Duration: 30 day(s) Active Omeprazole 20 MG 1 tablet 30 minutes before morning meal Orally Once a day; Duration: 30 day(s) Active Immunizations Vaccine Route Administration Date Status Comme nts COVID-19 Pfizer BioNTech Vaccine Unknown 02/21/2021 Administered first dose: 11/2020 Social History Tobacco Use: Social History Observation Description Date Details (start date - stop date) Former Smoker NA - NA Tobacco Use/Smoking Question Answer Notes Are you a: former smoker Additional Findings: Tobacco Non-User Current no n-smoker Alcohol Screen Question Answer Notes Did you have a drink containing alcohol in the p ast year? No Points 0 Interpretation Negative Tobacco use other than smoking: Question Answer Notes Are you an other tobacco user? No Plan Of Treatment No Information Insurance Providers Payer Name Payer Address Payer Phone Subscriber Number Group Number Insured Name Patient Relationship to Insured Coverage Start Date Coverage End Date [facility] [address] [place] [address] [phone] [id number] Michael Farrell Self - patient is the insured Medical (General) History Medical History History ICD Code Heart disease Hypertension Heart valve conditions/replacement Surgical History Surgery Date(Month/Year) heart valve replacement colonoscopy
--- OUTSIDE RECORDS SUMMARY | 2025-04-22 11:49 | XMS_ITS | Patient Health Record ---
Author Organization [facility] Address [address] [place] [address] Care Team Providers Care Site Promotion Agent Name Role Phone Ken (RETIRED) Chad SANCHEZ Primary Care Provider Unavailable Damian Sullivan Unavailable [phone] Reason For Referral No Information Medications Medication [...] Problem Status W/U Status Risk Notes Problem [id number] Encounter for screening for malignant neoplasm of colon (Z12.11) Active confirmed Problem [id number] Gastroesophageal reflux disease, esophagitis presence not specified (K21.9) Active confirmed Problem [id number] Hx of adenomatou s colonic polyps (Z86.010) Active confirmed Plan Of Treatment Future Test Test Name Order Date UPPER GI ENDOSCOPY 01/02/2019 COLONOSCOPY 01/02/2019 Insurance Providers Payer Name Payer Address Payer Phone Subscriber Number Group Number Insured Name Patient Relationship to Insured Coverage Start Date Coverage End Date [facility] [address] [facility] [place] [phone] [id number] CORA SANCHEZ Self - patient is the insured Medical (General) History Medical History History ICD Code Denies DC,DM,CVA,Lung disease,renal dise ase Hypertension Colonoscopy 2003-- small tubular adeno ma removed GERD Memory issues as a result of the cardiac surgery Hyperlipidemia Surgical History Surgery Date(Month/Year) Prosthetic aortic valve replacement 2008
== END 2025-04-22 10:15 | disposition home or self-care (01) ==
PROVIDERS: PCP Student in an Organized Health Care Education/Training Program; Visit Provider Student in an Organized Health Care Education/Training Program
DX: Z95.2 Presence of prosthetic heart valve (principal); I10 Essential (primary) hypertension; E78.5 Hyperlipidemia, unspecified; I50.20 Unspecified systolic (congestive) heart failure; F31.9 Bipolar disorder, unspecified; R42 Dizziness and giddiness

== ENCOUNTER 2025-04-22 09:44 | Outpatient (REF) | payer OTHER, SELFPAY ==
[2025-04-22 10:45] LABS: MANUAL DIFF FLAG NO
[2025-04-22 11:07] LABS: Hematocrit 41.6 % (42.0-52.0); Hemoglobin 14.8 g/dl (14.0-18.0); Imm Gran Abs Auto 0.01 X10*3/uL (0.00-0.03); Imm Gran Pct Auto 0.2 % (0.0-0.4); Lymphocytes Absolute Auto 1.1 X10*3/uL (1.2-4.9); Mean Corpuscular HGB Conc 35.6 g/dl (31.0-36.0); Mean Corpuscular Hemoglobin 33.3 pg (27.0-33.0); Mean Corpuscular Volume 93.5 fL (80.0-98.0); NRBC Abs Auto 0.000 X10*3/uL (0.0-0.012); NRBC Pct Auto 0.0 /100WBC (0.0-0.2); Platelet Count 185 X10*3/uL (160-400); Red Blood Count 4.45 X10*6/uL (4.60-5.80); White Blood Count 5.3 X10*3/uL (4.8-10.8)
[2025-04-22 12:08] LABS: Alanine Aminotransferase 49 U/L (0-40); Albumin Level 4.5 g/dL (3.5-5.0); Alkaline Phosphatase 56 U/L (39-117); Anion Gap 11 (12-20); Aspartate Amino Transferase 42 U/L (5-37); Blood Urea Nitrogen 14 mg/dL (9-16); Calcium 9.1 mg/dL (8.4-10.2); Carbon Dioxide 29 mmol/L (22-29); Chloride 105 mmol/L (96-108); Cholesterol 102 mg/dL (<200); Estimated Glomerular Filt Rate 54; HDL Cholesterol 29 mg/dL (>40); Potassium 4.9 mmol/L (3.3-5.1); Sodium 140 mmol/L (135-145); Total Protein 7.2 g/dL (6.5-8.0); Triglycerides 175 mg/dL (<150)
== END 2025-04-22 09:45 | disposition home or self-care (01) ==
LOC: HO.LAB 09:44
PROVIDERS: PCP Student in an Organized Health Care Education/Training Program; Visit Provider Student in an Organized Health Care Education/Training Program
DX: Z76.89 Persons encountering health services in other specified circumstances (principal); Z13.1 Encounter for screening for diabetes mellitus; I10 Essential (primary) hypertension; E78.5 Hyperlipidemia, unspecified; I50.20 Unspecified systolic (congestive) heart failure; F31.9 Bipolar disorder, unspecified; R42 Dizziness and giddiness; Z95.2 Presence of prosthetic heart valve
CPT/HCPCS: 36415; 80053; 80061; 82306; 83036; 84443; 85025; 96127

== ENCOUNTER 2025-05-04 09:37 | Outpatient (AMB) | payer OTHER, SELFPAY ==
--- NOTE | 2025-05-04 09:39 | A.OFFVIS_ITS ---
Vital Signs 05/04/25 09:42 Height 5 ft 4 in Weight 163 lb 9.328 oz BMI 28.1 BP 130/70 Blood Pressure Location Lt brachial Position Sitting Pulse 74 Pulse Source Pulse Oximeter Intake Visit Reasons: 4 mth f/up Intake Note: 4 mth f/up Entry Level Management Required: No Accompanied by: Self / Same As Patient Allergies No Known Allergies Allergy (Verified 04/22/25 09:52) Medication List - Last Reviewed 05/04/25 by Anastacia Huerta CMA atorvastatin 10 mg PO DAILY lamotrigine 25 mg PO memantine 5 mg PO BEDTIME metoprolol succinate ER 25 mg PO DAILY nortriptyline 25 mg PO QAM omeprazole 20 mg PO BID sacubitril-valsartan 24-26 mg (Entresto) 1 tab PO BID spironolactone 25 mg PO DAILY trazodone 50 mg PO BEDTIME warfarin 2.5 mg PO BEDTIME HPI Comments Details: [age] gentleman with background history of mechanical aortic valve replacement currently on Coumadin and nonischemic cardiomyopathy with EF 35-40%. Cardiac catheterization June 2024 showing no significant coronary artery disease. He is on guideline directed medical therapy with Entresto, spironolactone and Toprol-XL. Echocardiography in November 2024 showing EF 35-40% without any regional wall motion abnormalities. Normal functioning mechanical aortic valve was noted. He has been stable. No orthopnea or PND. 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 He is saying when he is walking outside he gets some dyspnea. He does stairs at work at his own pace and does okay. 05/04/2025: He is here for follow-up. He is saying he is unable to tolerate Jardiance because of dizziness. He is taking rest of his medications regularly. No heart failure symptoms currently. On warfarin for mechanical aortic valve replacement in the past. [facility] Medical History (Updated 04/22/25 @ 10:13 by Italo Jerry MD) Orthostatic dizziness Bipolar 1 disorder Heart failure with reduced ejection fraction Hyperlipidemia Cardiomyopathy Essential hypertension Surgical History (Updated 04/22/25 @ 10:12 by Italo Jerry MD) Heart valve replaced Family History (Updated 04/22/25 @ 09:56 by Ary Murrell MA) Mother No problems noted. Father No problems noted. 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 Cognitive needs: No Hearing needs: No Vision needs: Yes (rx galsses) Review of Systems Const Denies chills, Denies fatigue, Denies fever(s), Denies frequent falls, Denies weakness, Denies weight gain and Denies weight loss ENT Denies dizziness Card Denies chest pain, Denies leg edema, Denies lightheadedness, Denies palpitations, Denies dyspnea and Denies dyspnea on exertion Resp Denies cough, Denies dyspnea and Denies dyspnea on exertion GI Denies hematochezia Musc Denies abnormal gait, Denies muscle weakness, Denies numbness, Denies radiating pain into limb and Denies tingling Neuro Denies abnormal gait, Denies dizziness, Denies frequent falls, Denies numbness, Denies tingling and Denies weakness Endo Denies fatigue and Denies palpitations Physical Exam GENERAL APPEARANCE: in no acute distress, well developed, well nourished. NECK/THYROID: no carotid bruit, no jugular venous distention. SKIN: Xanthelasma under right eye. HEART: Systolic murmur in the aortic area, mechanical 2nd heart sound. LUNGS: clear to auscultation bilaterally. ABDOMEN: normal, bowel sounds present, soft, nontender, nondistended. EXTREMITIES: no clubbing, cyanosis, or edema. PERIPHERAL PULSES: equal. NEUROLOGIC: nonfocal, alert and oriented. PSYCH: mood/affect full range. Assessment & Plan Assessment & Plan (1) Essential hypertension: Comment: Home medications: Metoprolol succinate 25 mg daily, Entresto 2426 mg b.i.d., spironolactone 25 mg daily -pressure is well controlled and we will continue the same regimen and increase as required Code(s): I10 - Essential (primary) hypertension Category: Medical (2) Cardiomyopathy: Code(s): I42.9 - Cardiomyopathy, unspecified Category: Medical Qualifiers: Cardiomyopathy type: unspecified Qualified Code(s): I42.9 - Cardiomyopathy, unspecified Plan Pleasant 74 year gentleman who is here for follow-up. He has history of mechanical aortic valve replacement and has been on chronic Coumadin therapy. He has a nonischemic cardiomyopathy and is currently on spironolactone, Entresto and metoprolol. He was started on Jardiance but he had some dizziness. I have advised him to hydrate himself and then retry taking Jardiance 3 times a week on Sunday and Sunday and if he tolerates it for couple of weeks then go to daily. Obviously if he gets dizzy spells again and can not tolerate the medicine then we will stop the medicine. It has good results for cardiovascular outcomes in cardiomyopathy/heart failure and I think it is worth another try. He will see us back in 4 months. Thank you for allowing me to participate in the care of your patient. Please feel free to contact me if you have any questions. Coding Level of Care Code Est Pt Level 4 (64827) Diagnoses Essential hypertension I10 Cardiomyopathy, unspecified type I42.9 Cardiomyopathy type: unspecified
[2025-05-04 09:42] VITALS: BP 130/70; PULSE 74; BMI 28.1
--- OUTSIDE RECORDS SUMMARY | 2025-05-04 11:01 | XMS_ITS | Patient Health Record ---
Author Organization [facility] Address [address] [place] [address] Care Team Providers Care Country Sales Manager Name Role Phone Chad Rogers MD Primary Care Provider UnavailDimitris Julien Unavailable [phone] Allergies No Known Allergies Reason For Referral [...] Insured Coverage Start Date Coverage End Date [facility] [address] [place] [address] [id number] Michael Farrell Self - patient is the insured Medical (General) History Medical History History ICD Code Heart disease Hypertension Heart valve conditions/replacement Surgical History Surgery Date(Month/Year) heart valve replacement colonoscopy
--- OUTSIDE RECORDS SUMMARY | 2025-05-04 11:01 | XMS_ITS | Patient Health Record ---
Author Organization [facility] Address [address] [place] [address] Care Team Providers Care Hand Potter Name Role Phone Ken (RETIRED) Chad SANCHEZ Primary Care Provider Unavailable Damian Sullivan Unavailable [phone] Reason For Referral No Information Medications Medication [...] Problem Status W/U Status Risk Notes Problem [id number] Encounter for screening for malignant neoplasm of colon (Z12.11) Active confirmed Problem [id number] Gastroesophageal reflux disease, esophagitis presence not specified (K21.9) Active confirmed Problem [id number] Hx of adenomatou s colonic polyps (Z86.010) Active confirmed Plan Of Treatment Future Test Test Name Order Date UPPER GI ENDOSCOPY 01/02/2019 COLONOSCOPY 01/02/2019 Insurance Providers Payer Name Payer Address Payer Phone Subscriber Number Group Number Insured Name Patient Relationship to Insured Coverage Start Date Coverage End Date [facility] [address] [facility] [place] [phone] [id number] CORA SANCHEZ Self - patient is the insured Medical (General) History Medical History History ICD Code Denies [place],DM,CVA,Lung disease,renal dise ase Hypertension Colonoscopy 2003-- small tubular adeno ma removed GERD Memory issues as a result of the cardiac surgery Hyperlipidemia Surgical History Surgery Date(Month/Year) Prosthetic aortic valve replacement 2008
== END 2025-05-04 09:55 | disposition home or self-care (01) ==
LOC: HO.HCS 09:38
PROVIDERS: PCP Family Medicine; Visit Provider Internal Medicine Cardiovascular Disease
DX: I10 Essential (primary) hypertension (principal); I42.9 Cardiomyopathy, unspecified
CPT/HCPCS: 99214